=== PATIENT | female | born 1960 | race American Indian/Alaskan Native ===

== ENCOUNTER 2019-10-25 17:03 | Inpatient (IN) | payer MEDICARE ==
[2019-10-25] MEDS ORDERED: SODIUM CHLORIDE 0.9% 1000 ML IV SOLN IV ONE (17:21)
[2019-10-25] MEDS ORDERED: CEFEPIME/NS 2 GM/100 ML 2 GM/100 ML BAG IV ONE (17:26)
--- NOTE | 2019-10-25 17:48 | Emergency Department Report ---
ED General Adult HPI - General Stated complaint: DIFFICULTY BREATHING Time Seen by Provider: 10/25/19 17:19 - History of Present Illness Initial comments: The patient presents to the emergency department via EMS for a chief complaint of hypotension. Per the patient she states that yesterday she had couple episodes of diarrhea and today she woke up and felt very weak and was sweaty. She states upon standing up she felt like she was going to pass out. Upon EMS arrival to state the patient was conversive but no radial pulse could be obtained and the patient had O2 sats in the 70s. Patient states he began to have some difficulty in breathing and chest pain this morning. Patient does have a history of emphysema but does not wear oxygen at home. Upon arrival to the ED the patient's blood pressure was 89/58 after receiving approximately 500 cc of fluid. Per EMS the patient's axillary temp was 94.3 -: Sudden Location: chest Radiation: non-radiation Severity scale (0 -10): 2 Quality: aching Consistency: constant Improves with: none Worsens with: none Associated Symptoms: denies other symptoms Treatments Prior to Arrival: none - Related Data Allergies Allergy/AdvReac Type Severity Reaction Status Date / Time diclofenac [From Voltaren] Allergy Hives Verified 10/25/19 18:02 ED Review of Systems ROS: Stated complaint: DIFFICULTY BREATHING Other details as noted in HPI Constitutional: denies: chills, fever Eyes: denies: eye pain, eye discharge, vision change ENT: denies: ear pain, throat pain Respiratory: shortness of breath Cardiovascular: denies: chest pain, palpitations Endocrine: no symptoms reported Gastrointestinal: denies: abdominal pain, nausea, diarrhea Genitourinary: denies: urgency, dysuria, discharge Musculoskeletal: denies: back pain, joint swelling, arthralgia Skin: denies: rash, lesions Neurological: denies: headache, weakness, paresthesias Psychiatric: denies: anxiety, depression Hematological/Lymphatic: denies: easy bleeding, easy bruising ED Physical Exam - General General appearance: alert, in no apparent distress - Head Head exam: Present: atraumatic, normocephalic - Eye Eye exam: Present: normal appearance, PERRL, EOMI - ENT ENT exam: Present: mucous membranes dry - Neck Neck exam: Present: normal inspection - Respiratory Respiratory exam: Present: wheezes. Absent: respiratory distress - Cardiovascular Cardiovascular Exam: Present: normal rhythm, tachycardia. Absent: systolic murmur, diastolic murmur, rubs, gallop - GI/Abdominal GI/Abdominal exam: Present: soft, normal bowel sounds. Absent: distended, tenderness - Extremities Exam Extremities exam: Present: other (Bilateral nonpitting edema of LE's ) - Back Exam Back exam: Present: normal inspection - Neurological Exam Neurological exam: Present: alert, oriented X3, CN II-XII intact. Absent: motor sensory deficit - Psychiatric Psychiatric exam: Present: normal affect, normal mood - Skin Skin exam: Present: warm, dry, intact, normal color. Absent: rash ED Course Vital Signs 10/25/19 10/25/19 10/25/19 17:38 17:45 19:02 Temperature 98.5 F Pulse Rate 118 H Respiratory 24 20 Rate Blood Pressure 89/58 O2 Sat by Pulse 86 96 97 Oximetry 10/25/19 10/25/19 10/25/19 19:56 20:00 20:16 Temperature Pulse Rate 106 H 106 H 108 H Respiratory 15 19 22 Rate Blood Pressure 134/98 142/101 O2 Sat by Pulse 90 97 Oximetry 10/25/19 10/25/19 10/25/19 20:30 21:10 21:16 Temperature Pulse Rate 109 H 108 H Respiratory 27 H 50 H 20 Rate Blood Pressure O2 Sat by Pulse 64 L Oximetry 10/25/19 10/25/19 10/25/19 21:30 21:46 22:00 Temperature Pulse Rate 110 H Respiratory 23 25 H 27 H Rate Blood Pressure O2 Sat by Pulse Oximetry 10/25/19 10/25/19 10/25/19 22:16 22:30 22:46 Temperature Pulse Rate 107 H 106 H 105 H Respiratory 18 20 24 Rate Blood Pressure 109/57 112/71 O2 Sat by Pulse Oximetry 10/25/19 23:55 Temperature Pulse Rate 102 H Respiratory 13 Rate Blood Pressure 94/52 O2 Sat by Pulse Oximetry - Central Line Placement Right Femoral Consent Obtained: verbal consent Time Out Performed: Yes Patient Placed on Monitor/Pulse Ox: Yes Prep: mask, gown, gloves Central Line Prep: Chlorhexidine scrub, sterile drapes applied Local Anesthesia Used: Lidocaine 1% Amount of Anesthesia Used (mls): 15 Ultrasound Used for Placement: Yes Central Line Lumen Inserted: triple Bloods Obtained for Lab: Yes Central Line Position: good blood return, all ports aspirated, flus, sutured in place with 2-0 Dressing Applied: Tegaderm Patient Tolerated Procedure: well Complications: none ED Medical Decision Making - Lab Data Result diagrams: 10/25/19 21:50 10/25/19 20:09 Lab Results 10/25/19 10/25/19 10/25/19 Range/Units 17:40 17:40 17:40 WBC 20.4 H (4.5-11.0) K/mm3 RBC 4.63 (3.65-5.03) M/mm3 Hgb 14.0 (10.1-14.3) gm/dl Hct 42.2 (30.3-42.9) % MCV 91 (79-97) fl MCH 30 (28-32) pg MCHC 33 (30-34) % RDW 18.9 H (13.2-15.2) % Plt Count 145 (140-440) K/mm3 Add Manual Diff Complete Total Counted 100 Seg Neuts % (Manual) 73.0 H (40.0-70.0) % Band Neutrophils % 6.0 % Lymphocytes % (Manual) 19.0 (13.4-35.0) % Reactive Lymphs % (Man) 0 % Monocytes % (Manual) 2.0 (0.0-7.3) % Eosinophils % (Manual) 0 (0.0-4.3) % Basophils % (Manual) 0 (0.0-1.8) % Metamyelocytes % 0 % Myelocytes % 0 % Promyelocytes % 0 % Blast Cells % 0 % Nucleated RBC % Not Reportable Seg Neutrophils # Man 14.9 H (1.8-7.7) K/mm3 Band Neutrophils # 1.2 K/mm3 Lymphocytes # (Manual) 3.9 (1.2-5.4) K/mm3 Abs React Lymphs (Man) 0.0 K/mm3 Monocytes # (Manual) 0.4 (0.0-0.8) K/mm3 Eosinophils # (Manual) 0.0 (0.0-0.4) K/mm3 Basophils # (Manual) 0.0 (0.0-0.1) K/mm3 Metamyelocytes # 0.0 K/mm3 Myelocytes # 0.0 K/mm3 Promyelocytes # 0.0 K/mm3 Blast Cells # 0.0 K/mm3 WBC Morphology Not Reportable Hypersegmented Neuts Not Reportable Hyposegmented Neuts Not Reportable Hypogranular Neuts Not Reportable Smudge Cells Not Reportable Toxic Granulation Not Reportable Toxic Vacuolation Not Reportable Dohle Bodies Not Reportable Pelger-Huet Anomaly Not Reportable Eagle Rods Not Reportable Platelet Estimate Consistent w auto Clumped Platelets Not Reportable Plt Clumps, EDTA Not Reportable Large Platelets Not Reportable Giant Platelets Not Reportable Platelet Satelliting Not Reportable Plt Morphology Comment Not Reportable RBC Morphology Not Reportable Dimorphic RBCs Not Reportable Polychromasia Not Reportable Hypochromasia Not Reportable Poikilocytosis Not Reportable Anisocytosis Not Reportable Microcytosis Not Reportable Macrocytosis Not Reportable Spherocytes Not Reportable Pappenheimer Bodies Not Reportable Sickle Cells Not Reportable Target Cells Not Reportable Tear Drop Cells Not Reportable Ovalocytes Rare Helmet Cells Not Reportable Lawson-La Feria Bodies Not Reportable [place] Rings Not Reportable [place] Cells Not Reportable Bite Cells Not Reportable Crenated Cell Not Reportable Elliptocytes Not Reportable Acanthocytes (Spur) Not Reportable Rouleaux Not Reportable Hemoglobin C Crystals Not Reportable Schistocytes Not Reportable Malaria parasites Not Reportable David Bodies Not Reportable Hem Pathologist Commnt No PT (12.2-14.9) Sec. INR (0.87-1.13) APTT 24.4 (24.2-36.6) Sec. D-Dimer > 80789 H (0-234) ng/mlDDU ABG pH (7.350-7.450) pH Units ABG pCO2 mm Hg ABG pO2 (80.0-90.0) mm Hg ABG HCO3 (20.0-26.0) mmol/L ABG O2 Saturation (95.0-99.0) % ABG O2 Content (0.0-44) ABG Base Excess (-2.0-3.0) mmol/L ABG Hemoglobin (12.0-16.0) gm/dl ABG Carboxyhemoglobin (0.0-5.0) % ABG Methemoglobin (0.0-1.5) % Oxyhemoglobin (95.0-99.0) % FiO2 % Sodium 138 (137-145) mmol/L Potassium 2.2 L* (3.6-5.0) mmol/L Chloride 91.3 L (98-107) mmol/L Carbon Dioxide 23 (22-30) mmol/L Anion Gap 26 mmol/L BUN 22 H (7-17) mg/dL Creatinine 1.3 H (0.6-1.2) mg/dL Estimated GFR 42 ml/min BUN/Creatinine Ratio 17 % Glucose 202 H (65-100) mg/dL Lactic Acid (0.7-2.0) mmol/L Calcium 9.2 (8.4-10.2) mg/dL Magnesium (1.7-2.3) mg/dL Ferritin (10.0-200.0) ng/mL Total Bilirubin 0.60 (0.1-1.2) mg/dL AST 33 (5-40) units/L ALT 31 (7-56) units/L Alkaline Phosphatase 96 (35-129) units/L Lactate Dehydrogenase (91-180) units/L Troponin T 0.193 H* (0.00-0.029) ng/mL C-Reactive Protein (0.00-1.30) mg/dL NT-Pro-B Natriuret Pep (0-900) pg/mL Total Protein 6.3 (6.3-8.2) g/dL Albumin 3.9 (3.9-5) g/dL Albumin/Globulin Ratio 1.6 % Triglycerides 106 (2-149) mg/dL Cholesterol 185 (50-199) mg/dL LDL Cholesterol Direct 107 (50-130) mg/dL HDL Cholesterol 85 H (40-59) mg/dL Cholesterol/HDL Ratio 2.17 % 10/25/19 10/25/19 10/25/19 Range/Units 17:40 17:40 17:40 WBC (4.5-11.0) K/mm3 RBC (3.65-5.03) M/mm3 Hgb (10.1-14.3) gm/dl Hct (30.3-42.9) % MCV (79-97) fl MCH (28-32) pg MCHC (30-34) % RDW (13.2-15.2) % Plt Count (140-440) K/mm3 Add Manual Diff Total Counted Seg Neuts % (Manual) (40.0-70.0) % Band Neutrophils % % Lymphocytes % (Manual) (13.4-35.0) % Reactive Lymphs % (Man) % Monocytes % (Manual) (0.0-7.3) % Eosinophils % (Manual) (0.0-4.3) % Basophils % (Manual) (0.0-1.8) % Metamyelocytes % % Myelocytes % % Promyelocytes % % Blast Cells % % Nucleated RBC % Seg Neutrophils # Man (1.8-7.7) K/mm3 Band Neutrophils # K/mm3 Lymphocytes # (Manual) (1.2-5.4) K/mm3 Abs React Lymphs (Man) K/mm3 Monocytes # (Manual) (0.0-0.8) K/mm3 Eosinophils # (Manual) (0.0-0.4) K/mm3 Basophils # (Manual) (0.0-0.1) K/mm3 Metamyelocytes # K/mm3 Myelocytes # K/mm3 Promyelocytes # K/mm3 Blast Cells # K/mm3 WBC Morphology Hypersegmented Neuts Hyposegmented Neuts Hypogranular Neuts Smudge Cells Toxic Granulation Toxic Vacuolation Dohle Bodies Pelger-Huet Anomaly [place] Rods Platelet Estimate Clumped Platelets Plt Clumps, EDTA Large Platelets Giant Platelets Platelet Satelliting Plt Morphology Comment RBC Morphology Dimorphic RBCs Polychromasia Hypochromasia Poikilocytosis Anisocytosis Microcytosis Macrocytosis Spherocytes Pappenheimer Bodies Sickle Cells Target Cells Tear Drop Cells Ovalocytes Helmet Cells Lawson-La Feria Bodies [place] Rings [place] Cells Bite Cells Crenated Cell Elliptocytes Acanthocytes (Spur) Rouleaux Hemoglobin C Crystals Schistocytes Malaria parasites David Bodies Hem Pathologist Commnt PT (12.2-14.9) Sec. INR (0.87-1.13) APTT (24.2-36.6) Sec. D-Dimer > 11199 H (0-234) ng/mlDDU ABG pH (7.350-7.450) pH Units ABG pCO2 mm Hg ABG pO2 (80.0-90.0) mm Hg ABG HCO3 (20.0-26.0) mmol/L ABG O2 Saturation (95.0-99.0) % ABG O2 Content (0.0-44) ABG Base Excess (-2.0-3.0) mmol/L ABG Hemoglobin (12.0-16.0) gm/dl ABG Carboxyhemoglobin (0.0-5.0) % ABG Methemoglobin (0.0-1.5) % Oxyhemoglobin (95.0-99.0) % FiO2 % Sodium (137-145) mmol/L Potassium (3.6-5.0) mmol/L Chloride (98-107) mmol/L Carbon Dioxide (22-30) mmol/L Anion Gap mmol/L BUN (7-17) mg/dL Creatinine (0.6-1.2) mg/dL Estimated GFR ml/min BUN/Creatinine Ratio % Glucose (65-100) mg/dL Lactic Acid 8.00 H* (0.7-2.0) mmol/L Calcium (8.4-10.2) mg/dL Magnesium (1.7-2.3) mg/dL Ferritin (10.0-200.0) ng/mL Total Bilirubin (0.1-1.2) mg/dL AST (5-40) units/L ALT (7-56) units/L Alkaline Phosphatase (35-129) units/L Lactate Dehydrogenase (91-180) units/L Troponin T (0.00-0.029) ng/mL C-Reactive Protein (0.00-1.30) mg/dL NT-Pro-B Natriuret Pep 179.5 (0-900) pg/mL Total Protein (6.3-8.2) g/dL Albumin (3.9-5) g/dL Albumin/Globulin Ratio % Triglycerides (2-149) mg/dL Cholesterol (50-199) mg/dL LDL Cholesterol Direct (50-130) mg/dL HDL Cholesterol (40-59) mg/dL Cholesterol/HDL Ratio % 10/25/19 10/25/19 10/25/19 Range/Units 17:40 17:40 17:45 WBC (4.5-11.0) K/mm3 RBC (3.65-5.03) M/mm3 Hgb (10.1-14.3) gm/dl Hct (30.3-42.9) % MCV (79-97) fl MCH (28-32) pg MCHC (30-34) % RDW (13.2-15.2) % Plt Count (140-440) K/mm3 Add Manual Diff Total Counted Seg Neuts % (Manual) (40.0-70.0) % Band Neutrophils % % Lymphocytes % (Manual) (13.4-35.0) % Reactive Lymphs % (Man) % Monocytes % (Manual) (0.0-7.3) % Eosinophils % (Manual) (0.0-4.3) % Basophils % (Manual) (0.0-1.8) % Metamyelocytes % % Myelocytes % % Promyelocytes % % Blast Cells % % Nucleated RBC % Seg Neutrophils # Man (1.8-7.7) K/mm3 Band Neutrophils # K/mm3 Lymphocytes # (Manual) (1.2-5.4) K/mm3 Abs React Lymphs (Man) K/mm3 Monocytes # (Manual) (0.0-0.8) K/mm3 Eosinophils # (Manual) (0.0-0.4) K/mm3 Basophils # (Manual) (0.0-0.1) K/mm3 Metamyelocytes # K/mm3 Myelocytes # K/mm3 Promyelocytes # K/mm3 Blast Cells # K/mm3 WBC Morphology Hypersegmented Neuts Hyposegmented Neuts Hypogranular Neuts Smudge Cells Toxic Granulation Toxic Vacuolation Dohle Bodies Pelger-Huet Anomaly [place] Rods Platelet Estimate Clumped Platelets Plt Clumps, EDTA Large Platelets Giant Platelets Platelet Satelliting Plt Morphology Comment RBC Morphology Dimorphic RBCs Polychromasia Hypochromasia Poikilocytosis Anisocytosis Microcytosis Macrocytosis Spherocytes Pappenheimer Bodies Sickle Cells Target Cells Tear Drop Cells Ovalocytes Helmet Cells Lawson-La Feria Bodies [place] Rings [place] Cells Bite Cells Crenated Cell Elliptocytes Acanthocytes (Spur) Rouleaux Hemoglobin C Crystals Schistocytes Malaria parasites David Bodies Hem Pathologist Commnt PT (12.2-14.9) Sec. INR (0.87-1.13) APTT (24.2-36.6) Sec. D-Dimer (0-234) ng/mlDDU ABG pH 7.397 (7.350-7.450) pH Units ABG pCO2 36.6 mm Hg ABG pO2 71.5 L (80.0-90.0) mm Hg ABG HCO3 22.0 (20.0-26.0) mmol/L ABG O2 Saturation 94.6 L (95.0-99.0) % ABG O2 Content 17.6 (0.0-44) ABG Base Excess -2.3 L (-2.0-3.0) mmol/L ABG Hemoglobin 13.7 (12.0-16.0) gm/dl ABG Carboxyhemoglobin 2.9 (0.0-5.0) % ABG Methemoglobin 0.3 (0.0-1.5) % Oxyhemoglobin 91.6 L (95.0-99.0) % FiO2 21 % Sodium (137-145) mmol/L Potassium (3.6-5.0) mmol/L Chloride (98-107) mmol/L Carbon Dioxide (22-30) mmol/L Anion Gap mmol/L BUN (7-17) mg/dL Creatinine (0.6-1.2) mg/dL Estimated GFR ml/min BUN/Creatinine Ratio % Glucose 205 H (65-100) mg/dL Lactic Acid (0.7-2.0) mmol/L Calcium (8.4-10.2) mg/dL Magnesium (1.7-2.3) mg/dL Ferritin 121.6 (10.0-200.0) ng/mL Total Bilirubin (0.1-1.2) mg/dL AST (5-40) units/L ALT (7-56) units/L Alkaline Phosphatase (35-129) units/L Lactate Dehydrogenase 322 H (91-180) units/L Troponin T (0.00-0.029) ng/mL C-Reactive Protein 2.50 H (0.00-1.30) mg/dL NT-Pro-B Natriuret Pep (0-900) pg/mL Total Protein (6.3-8.2) g/dL Albumin (3.9-5) g/dL Albumin/Globulin Ratio % Triglycerides (2-149) mg/dL Cholesterol (50-199) mg/dL LDL Cholesterol Direct (50-130) mg/dL HDL Cholesterol (40-59) mg/dL Cholesterol/HDL Ratio % 10/25/19 10/25/19 10/25/19 Range/Units 20:09 20:09 20:09 WBC (4.5-11.0) K/mm3 RBC (3.65-5.03) M/mm3 Hgb (10.1-14.3) gm/dl Hct (30.3-42.9) % MCV (79-97) fl MCH (28-32) pg MCHC (30-34) % RDW (13.2-15.2) % Plt Count (140-440) K/mm3 Add Manual Diff Total Counted Seg Neuts % (Manual) (40.0-70.0) % Band Neutrophils % % Lymphocytes % (Manual) (13.4-35.0) % Reactive Lymphs % (Man) % Monocytes % (Manual) (0.0-7.3) % Eosinophils % (Manual) (0.0-4.3) % Basophils % (Manual) (0.0-1.8) % Metamyelocytes % % Myelocytes % % Promyelocytes % % Blast Cells % % Nucleated RBC % Seg Neutrophils # Man (1.8-7.7) K/mm3 Band Neutrophils # K/mm3 Lymphocytes # (Manual) (1.2-5.4) K/mm3 Abs React Lymphs (Man) K/mm3 Monocytes # (Manual) (0.0-0.8) K/mm3 Eosinophils # (Manual) (0.0-0.4) K/mm3 Basophils # (Manual) (0.0-0.1) K/mm3 Metamyelocytes # K/mm3 Myelocytes # K/mm3 Promyelocytes # K/mm3 Blast Cells # K/mm3 WBC Morphology Hypersegmented Neuts Hyposegmented Neuts Hypogranular Neuts Smudge Cells Toxic Granulation Toxic Vacuolation Dohle Bodies Pelger-Huet Anomaly [place] Rods Platelet Estimate Clumped Platelets Plt Clumps, EDTA Large Platelets Giant Platelets Platelet Satelliting Plt Morphology Comment RBC Morphology Dimorphic RBCs Polychromasia Hypochromasia Poikilocytosis Anisocytosis Microcytosis Macrocytosis Spherocytes Pappenheimer Bodies Sickle Cells Target Cells Tear Drop Cells Ovalocytes Helmet Cells Lawson-La Feria Bodies [place] Rings [place] Cells Bite Cells Crenated Cell Elliptocytes Acanthocytes (Spur) Rouleaux Hemoglobin C Crystals Schistocytes Malaria parasites David Bodies Hem Pathologist Commnt PT (12.2-14.9) Sec. INR (0.87-1.13) APTT (24.2-36.6) Sec. D-Dimer (0-234) ng/mlDDU ABG pH (7.350-7.450) pH Units ABG pCO2 mm Hg ABG pO2 (80.0-90.0) mm Hg ABG HCO3 (20.0-26.0) mmol/L ABG O2 Saturation (95.0-99.0) % ABG O2 Content (0.0-44) ABG Base Excess (-2.0-3.0) mmol/L ABG Hemoglobin (12.0-16.0) gm/dl ABG Carboxyhemoglobin (0.0-5.0) % ABG Methemoglobin (0.0-1.5) % Oxyhemoglobin (95.0-99.0) % FiO2 % Sodium (137-145) mmol/L Potassium 3.0 L D (3.6-5.0) mmol/L Chloride (98-107) mmol/L Carbon Dioxide (22-30) mmol/L Anion Gap mmol/L BUN (7-17) mg/dL Creatinine (0.6-1.2) mg/dL Estimated GFR ml/min BUN/Creatinine Ratio % Glucose (65-100) mg/dL Lactic Acid 3.40 H* (0.7-2.0) mmol/L Calcium (8.4-10.2) mg/dL Magnesium 2.30 (1.7-2.3) mg/dL Ferritin (10.0-200.0) ng/mL Total Bilirubin (0.1-1.2) mg/dL AST (5-40) units/L ALT (7-56) units/L Alkaline Phosphatase (35-129) units/L Lactate Dehydrogenase (91-180) units/L Troponin T (0.00-0.029) ng/mL C-Reactive Protein (0.00-1.30) mg/dL NT-Pro-B Natriuret Pep (0-900) pg/mL Total Protein (6.3-8.2) g/dL Albumin (3.9-5) g/dL Albumin/Globulin Ratio % Triglycerides (2-149) mg/dL Cholesterol (50-199) mg/dL LDL Cholesterol Direct (50-130) mg/dL HDL Cholesterol (40-59) mg/dL Cholesterol/HDL Ratio % 10/25/19 10/25/19 Range/Units 21:50 21:50 WBC (4.5-11.0) K/mm3 RBC (3.65-5.03) M/mm3 Hgb 13.2 (10.1-14.3) gm/dl Hct 40.4 (30.3-42.9) % MCV (79-97) fl MCH (28-32) pg MCHC (30-34) % RDW (13.2-15.2) % Plt Count 127 L (140-440) K/mm3 Add Manual Diff Total Counted Seg Neuts % (Manual) (40.0-70.0) % Band Neutrophils % % Lymphocytes % (Manual) (13.4-35.0) % Reactive Lymphs % (Man) % Monocytes % (Manual) (0.0-7.3) % Eosinophils % (Manual) (0.0-4.3) % Basophils % (Manual) (0.0-1.8) % Metamyelocytes % % Myelocytes % % Promyelocytes % % Blast Cells % % Nucleated RBC % Seg Neutrophils # Man (1.8-7.7) K/mm3 Band Neutrophils # K/mm3 Lymphocytes # (Manual) (1.2-5.4) K/mm3 Abs React Lymphs (Man) K/mm3 Monocytes # (Manual) (0.0-0.8) K/mm3 Eosinophils # (Manual) (0.0-0.4) K/mm3 Basophils # (Manual) (0.0-0.1) K/mm3 Metamyelocytes # K/mm3 Myelocytes # K/mm3 Promyelocytes # K/mm3 Blast Cells # K/mm3 WBC Morphology Hypersegmented Neuts Hyposegmented Neuts Hypogranular Neuts Smudge Cells Toxic Granulation Toxic Vacuolation Dohle Bodies Pelger-Huet Anomaly [place] Rods Platelet Estimate Clumped Platelets Plt Clumps, EDTA Large Platelets Giant Platelets Platelet Satelliting Plt Morphology Comment RBC Morphology Dimorphic RBCs Polychromasia Hypochromasia Poikilocytosis Anisocytosis Microcytosis Macrocytosis Spherocytes Pappenheimer Bodies Sickle Cells Target Cells Tear Drop Cells Ovalocytes Helmet Cells Lawson-La Feria Bodies [place] Rings [place] Cells Bite Cells Crenated Cell Elliptocytes Acanthocytes (Spur) Rouleaux Hemoglobin C Crystals Schistocytes Malaria parasites David Bodies Hem Pathologist Commnt PT 14.5 (12.2-14.9) Sec. INR 1.12 (0.87-1.13) APTT 26.9 (24.2-36.6) Sec. D-Dimer (0-234) ng/mlDDU ABG pH (7.350-7.450) pH Units ABG pCO2 mm Hg ABG pO2 (80.0-90.0) mm Hg ABG HCO3 (20.0-26.0) mmol/L ABG O2 Saturation (95.0-99.0) % ABG O2 Content (0.0-44) ABG Base Excess (-2.0-3.0) mmol/L ABG Hemoglobin (12.0-16.0) gm/dl ABG Carboxyhemoglobin (0.0-5.0) % ABG Methemoglobin (0.0-1.5) % Oxyhemoglobin (95.0-99.0) % FiO2 % Sodium (137-145) mmol/L Potassium (3.6-5.0) mmol/L Chloride (98-107) mmol/L Carbon Dioxide (22-30) mmol/L Anion Gap mmol/L BUN (7-17) mg/dL Creatinine (0.6-1.2) mg/dL Estimated GFR ml/min BUN/Creatinine Ratio % Glucose (65-100) mg/dL Lactic Acid (0.7-2.0) mmol/L Calcium (8.4-10.2) mg/dL Magnesium (1.7-2.3) mg/dL Ferritin (10.0-200.0) ng/mL Total Bilirubin (0.1-1.2) mg/dL AST (5-40) units/L ALT (7-56) units/L Alkaline Phosphatase (35-129) units/L Lactate Dehydrogenase (91-180) units/L Troponin T (0.00-0.029) ng/mL C-Reactive Protein (0.00-1.30) mg/dL NT-Pro-B Natriuret Pep (0-900) pg/mL Total Protein (6.3-8.2) g/dL Albumin (3.9-5) g/dL Albumin/Globulin Ratio % Triglycerides (2-149) mg/dL Cholesterol (50-199) mg/dL LDL Cholesterol Direct (50-130) mg/dL HDL Cholesterol (40-59) mg/dL Cholesterol/HDL Ratio % - EKG Data -: EKG Interpreted by Me EKG shows normal: sinus rhythm Rate: tachycardia - Radiology Data Radiology results: report reviewed - Medical Decision Making Sepsis protocol initiated and IV fluids along with IV antibiotics were given CT of the chest revealed bilateral pulmonary emboli and the patient was started on IV heparin Repeat examination of the patient 11 PM the patient is hypotensive thus a central line will be placed and dopamine will be started Critical Care Time: Yes Critical care time in (mins) excluding proc time.: 60 Critical care attestation.: If time is entered above; I have spent that time in minutes in the direct care of this critically ill patient, excluding procedure time. ED Disposition Clinical Impression: Bilateral pulmonary embolism, Sepsis, Acute renal injury Disposition: 09 OP ADMIT IP TO THIS HOSP Is pt being admited?: Yes Does the pt Need Aspirin: No Condition: Critical
[2019-10-25 17:52] LABS: ABG Base Excess -2.3 mmol/L (-2.0-3.0); ABG Methemoglobin 0.3 % (0.0-1.5); ABG Oxygen Saturation 94.6 % (95.0-99.0); ABG PCO2 36.6 mm Hg; ABG PH 7.397 pH Units (7.350-7.450); ABG PO2 71.5 mm Hg (80.0-90.0)
[2019-10-25 18:02] LABS: Hematocrit 42.2 % (30.3-42.9); Mean Corpuscular HGB Conc 33 % (30-34); Mean Corpuscular Volume 91 fl (79-97); Platelet Count 145 K/mm3 (140-440); Red Blood Count 4.63 M/mm3 (3.65-5.03); Red Cell Distribution Width 18.9 % (13.2-15.2)
[2019-10-25 18:14] LABS: Partial Thromboplastin Time 24.4 Sec. (24.2-36.6)
--- NOTE | 2019-10-25 18:26 | XRay Report ---
CHEST 1 VIEW INDICATION: hypotension. COMPARISON: None. FINDINGS: Support devices: None. Heart: Borderline heart size. Lungs/Pleura: No acute air space or interstitial disease. Additional findings: None. IMPRESSION: Borderline heart size. Signer Name: Corey Tucker MD Signed: 10/25/2019 6:22 PM Workstation Name: [id number]
[2019-10-25 18:28] LABS: Albumin 3.9 g/dL (3.9-5); Calcium 9.2 mg/dL (8.4-10.2)
[2019-10-25 18:40] LABS: C-Reactive Protein 2.5 mg/dL (0.00-1.30)
[2019-10-25 18:48] LABS: Chol/HDL Ratio 2.17 %
[2019-10-25 19:14] LABS: Band Neutrophils # (Manual) 1.2 K/mm3; Basophils % (Manual) 0 % (0.0-1.8); Eosinophils % (Manual) 0 % (0.0-4.3); Total Cells Counted 100
[2019-10-25 19:16] LABS: Ovalocytes Rare; Platelet Estimate Consistent w Auto
--- NOTE | 2019-10-25 21:37 | Cat Scan Report ---
CTA CHEST WITH CONTRAST INDICATION / CLINICAL INFORMATION: sob/tachycardia. TECHNIQUE: Axial CT images were obtained through the chest after injection of 100 cc Omni 350 IV contrast. 3 gertrudis ne MIP and/or 3D reconstructions were produced. All CT scans at this location are performed using CT dose reduction for ALARA by means of automated exposure control. COMPARISON: Chest radiograph 10/25/2019 FINDINGS: PULMONARY ARTERIES: Bilateral filling defects at the distal left and right main pulmonary arteries ex tending throughout the distal arteries. THORACIC AORTA: No significant abnormality. HEART: Flattening of the interventricular septum. MEDIASTINUM / NORMA: No significant abnormality. PLEURA: No pleural effusion. No pneumothorax. LUNGS: No pulmonary infarct. No focal consolidation, mass, or suspicious nodule. UPPER ABDOMEN: Reflux into the hepatic veins suggesting elevated right heart pressures SKELETAL STRUCTURES: No significant osseous abnormality. ADDITIONAL FINDINGS: None. IMPRESSION: 1. Large filling defects at the distal right and left main pulmonary arteries extending into the dist al branches. Findings concerning for right heart strain including flattening of the interventricular septum and reflux of contrast into the hepatic veins. No pulmonary infarct. 2. Additional findings as above. CRITICAL RESULT: Time of Discovery (CRIME INVESTIGATOR SPECIAL AGENT/CDT): 2024 Time of Communication (CRIME INVESTIGATOR SPECIAL AGENT/CDT): 2029 Licensed Practitioner Receiving Report: Kendrick Espino RN Read-Back Performed: Yes. Signer Name: Loco Kenny MD Signed: 10/25/2019 9:32 PM Workstation Name: [id number]
[2019-10-25] MEDS ORDERED: HEPARIN 10,000 UNITS/10 ML VIAL IV ONE (21:38)
[2019-10-25 21:59] LABS: Hematocrit 40.4 % (30.3-42.9); Hemoglobin 13.2 gm/dl (10.1-14.3)
[2019-10-25 22:13] LABS: INR 1.12 (0.87-1.13); Partial Thromboplastin Time 26.9 Sec. (24.2-36.6)
[2019-10-25] MEDS ORDERED: HYDROcodone/ACETAMINOPHEN 10-325MG TAB PO ONE (23:03)
[2019-10-25] MEDS ORDERED: LIDOCAINE (1%) 10 MG/1 ML VIAL 20 ML MDV INFILTRATI ONE (23:10)
[2019-10-25] MEDS ORDERED: DOPamine/D5W 800 MG/250 ML 800 MG/250 ML BAG IV ONE (23:11)
[2019-10-25] MEDS: HEPARIN/ 0.45% NACL DRIP 25,000 UNIT/500 ML BAG IV SCH (23:11)
[2019-10-25] MEDS ORDERED: MAGNESIUM HYDROXIDE (MOM) ORAL LIQD UDC PO PRN (23:26)
[2019-10-25] MEDS ORDERED: ACETAMINOPHEN 325 MG TAB PO PRN (23:26)
[2019-10-25] MEDS ORDERED: ONDANSETRON 4 MG/2 ML INJ IV PRN (23:26)
--- NOTE | 2019-10-25 23:36 | History and Physical Report ---
History of Present Illness Date of examination: 10/25/19 Date of admission: 10/25/2019 Chief complaint: Weakness Diarrhea Light-headedness History of present illness: Patient is a 59-year-old female with known history of emphysema presented to the emergency room today complaining of diarrhea and generalized weakness. He states that she had episodes of diarrhea yesterday and started feeling weak today and diaphoretic. She also indicates that she felt lightheaded when she stood up she thought she was going to pass out. Upon arrival of EMS patient was said to have thready pulse with O2 saturation in the 70s. She thereafter started having difficulty breathing and some chest discomfort. Blood pressure in the emergency room was 89/58 after receiving about 500 cc of IV fluid. Temperature was about 94.3 F axillary according to EMS. Work-up in the emergency room today reveals leukocytosis, elevated lactic acid, hypokalemia of about [address] angiogram reveals bilateral pulmonary embolism with right heart strain. Patient has been started on heparin drip and empiric IV antibiotics for sepsis. Patient also to be ruled out for COVID-19. Past History Past Medical History: COPD Past Surgical History: No surgical history Social history: no significant social history Family history: no significant family history Medications and Allergies Allergies Allergy/AdvReac Type Severity Reaction Status Date / Time diclofenac [From Voltaren] Allergy Hives Verified 10/25/19 18:02 Home Medications Medication Instructions Recorded Confirmed Last Taken Type Amitriptyline [Elavil] 25 mg PO QHS 10/26/19 10/26/19 Unknown History Cyclobenzaprine HCl [Flexeril 5 MG 5 mg PO TID 10/26/19 10/26/19 Unknown History TAB] Furosemide [Lasix TAB] 40 mg PO QDAY 10/26/19 10/26/19 Unknown History Gabapentin 300 mg PO TID 10/26/19 10/26/19 Unknown History Ibuprofen [Motrin] 800 mg PO Q8HR PRN 10/26/19 10/26/19 Unknown History predniSONE [Deltasone] 20 mg PO QDAY 10/26/19 10/26/19 Unknown History Active Meds: Active Medications Acetaminophen (Tylenol) 650 mg PO Q6H PRN PRN Reason: Pain, Mild (1-3) Hydromorphone HCl (Dilaudid) 0.25 mg IV Q4H PRN PRN Reason: Pain, Moderate (4-6) Heparin Sodium/Sodium Chloride (Heparin/ 0.45% Nacl-25,000 Unit/500 Ml) 25,000 unit in 500 mls @ 29 mls/hr IV TITR KATEY; Protocol Last Admin: 10/25/19 23:11 Dose: 1,450 units/hr, 29 mls/hr Documented by: Dopamine HCl/Dextrose (Intropin Drip 800 Mg/D5w 250 Ml) 800 mg in 250 mls @ 3.742 mls/hr IV TITR ONE; Protocol Stop: 10/28/19 17:59 Sodium Chloride (Nacl 0.9% 1000 Ml) 1,000 mls @ 125 mls/hr IV DIRECT KATEY Magnesium Hydroxide (Milk Of Magnesia) 30 ml PO Q4H PRN PRN Reason: Constipation Ondansetron HCl (Zofran) 4 mg IV Q8H PRN PRN Reason: Nausea And Vomiting Sodium Chloride (Sodium Chloride Flush Syringe 10 Ml) 10 ml IV BID KATEY Sodium Chloride (Sodium Chloride Flush Syringe 10 Ml) 10 ml IV PRN PRN PRN Reason: LINE FLUSH Review of Systems Constitutional: weakness, no fever, no chills Ears, nose, mouth and throat: no nasal congestion, no sore throat Cardiovascular: chest pain, no palpitations Respiratory: shortness of breath, no cough Gastrointestinal: diarrhea, no abdominal pain, no nausea, no vomiting Genitourinary Female: no pelvic pain, no flank pain, no dysuria, no hematuria Musculoskeletal: no neck pain, no low back pain Integumentary: no rash, no pruritis Neurological: no headaches, no confusion Psychiatric: no anxiety, no depression Exam - Constitutional Vitals: Temp Pulse Resp BP Pulse Ox 98.5 F 118 H 24 89/58 96 10/25/19 17:38 10/25/19 17:38 10/25/19 17:38 10/25/19 17:38 10/25/19 17:45 General appearance: Present: no acute distress, well-nourished, obese - EENT Eyes: Present: PERRL, EOM intact ENT: hearing intact, clear oral mucosa, dentition normal - Neck Neck: Present: supple, normal ROM - Respiratory Respiratory effort: normal Respiratory: bilateral: CTA - Cardiovascular Rhythm: other (Mildly tachycardic) Heart Sounds: Present: S1 & S2. Absent: gallop, systolic murmur, diastolic murmur, rub - Extremities Extremities: no ischemia, pulses intact, pulses symmetrical, No edema, Full ROM Peripheral Pulses: within normal limits - Abdominal General gastrointestinal: Present: soft, non-tender, non-distended, normal bowel sounds. Absent: mass - Integumentary Integumentary: Present: clear, warm, dry. Absent: rash - Musculoskeletal Musculoskeletal: strength equal bilaterally - Psychiatric Psychiatric: appropriate mood/affect, intact judgment & insight, memory intact, cooperative - Neurologic Neurologic: CNII-XII intact, no focal deficits, moves all extremities HEART Score - HEART Score Troponin: Troponin T 0.193 ng/mL (0.00-0.029) H* 10/25/19 17:40 Results - Labs CBC & Chem 7: 10/25/19 21:50 10/25/19 20:09 Labs: Abnormal lab results 10/25/19 10/25/19 10/25/19 Range/Units 17:40 17:40 17:40 WBC 20.4 H (4.5-11.0) K/mm3 RDW 18.9 H (13.2-15.2) % Plt Count (140-440) K/mm3 Seg Neuts % (Manual) 73.0 H (40.0-70.0) % Seg Neutrophils # Man 14.9 H (1.8-7.7) K/mm3 D-Dimer > 84928 H (0-234) ng/mlDDU ABG pO2 (80.0-90.0) mm Hg ABG O2 Saturation (95.0-99.0) % ABG Base Excess (-2.0-3.0) mmol/L Oxyhemoglobin (95.0-99.0) % Potassium 2.2 L* (3.6-5.0) mmol/L Chloride 91.3 L (98-107) mmol/L BUN 22 H (7-17) mg/dL Creatinine 1.3 H (0.6-1.2) mg/dL Glucose 202 H (65-100) mg/dL Lactic Acid (0.7-2.0) mmol/L Lactate Dehydrogenase (91-180) units/L Troponin T 0.193 H* (0.00-0.029) ng/mL C-Reactive Protein (0.00-1.30) mg/dL HDL Cholesterol 85 H (40-59) mg/dL 10/25/19 10/25/19 10/25/19 Range/Units 17:40 17:40 17:40 WBC (4.5-11.0) K/mm3 RDW (13.2-15.2) % Plt Count (140-440) K/mm3 Seg Neuts % (Manual) (40.0-70.0) % Seg Neutrophils # Man (1.8-7.7) K/mm3 D-Dimer > 20342 H (0-234) ng/mlDDU ABG pO2 (80.0-90.0) mm Hg ABG O2 Saturation (95.0-99.0) % ABG Base Excess (-2.0-3.0) mmol/L Oxyhemoglobin (95.0-99.0) % Potassium (3.6-5.0) mmol/L Chloride (98-107) mmol/L BUN (7-17) mg/dL Creatinine (0.6-1.2) mg/dL Glucose 205 H (65-100) mg/dL Lactic Acid 8.00 H* (0.7-2.0) mmol/L Lactate Dehydrogenase 322 H (91-180) units/L Troponin T (0.00-0.029) ng/mL C-Reactive Protein 2.50 H (0.00-1.30) mg/dL HDL Cholesterol (40-59) mg/dL 10/25/19 10/25/19 10/25/19 Range/Units 17:45 20:09 20:09 WBC (4.5-11.0) K/mm3 RDW (13.2-15.2) % Plt Count (140-440) K/mm3 Seg Neuts % (Manual) (40.0-70.0) % Seg Neutrophils # Man (1.8-7.7) K/mm3 D-Dimer (0-234) ng/mlDDU ABG pO2 71.5 L (80.0-90.0) mm Hg ABG O2 Saturation 94.6 L (95.0-99.0) % ABG Base Excess -2.3 L (-2.0-3.0) mmol/L Oxyhemoglobin 91.6 L (95.0-99.0) % Potassium 3.0 L D (3.6-5.0) mmol/L Chloride (98-107) mmol/L BUN (7-17) mg/dL Creatinine (0.6-1.2) mg/dL Glucose (65-100) mg/dL Lactic Acid 3.40 H* (0.7-2.0) mmol/L Lactate Dehydrogenase (91-180) units/L Troponin T (0.00-0.029) ng/mL C-Reactive Protein (0.00-1.30) mg/dL HDL Cholesterol (40-59) mg/dL 10/25/19 Range/Units 21:50 WBC (4.5-11.0) K/mm3 RDW (13.2-15.2) % Plt Count 127 L (140-440) K/mm3 Seg Neuts % (Manual) (40.0-70.0) % Seg Neutrophils # Man (1.8-7.7) K/mm3 D-Dimer (0-234) ng/mlDDU ABG pO2 (80.0-90.0) mm Hg ABG O2 Saturation (95.0-99.0) % ABG Base Excess (-2.0-3.0) mmol/L Oxyhemoglobin (95.0-99.0) % Potassium (3.6-5.0) mmol/L Chloride (98-107) mmol/L BUN (7-17) mg/dL Creatinine (0.6-1.2) mg/dL Glucose (65-100) mg/dL Lactic Acid (0.7-2.0) mmol/L Lactate Dehydrogenase (91-180) units/L Troponin T (0.00-0.029) ng/mL C-Reactive Protein (0.00-1.30) mg/dL HDL Cholesterol (40-59) mg/dL Assessment and Plan - Patient Problems (1) Bilateral pulmonary embolism Current Visit: Yes Status: Acute Plan to address problem: Patient started on heparin drip. Will monitor PT PTT according to protocol. (2) Sepsis Current Visit: Yes Status: Acute Plan to address problem: Patient started on empiric IV antibiotics. We await urine and blood cultures. (3) Acute renal injury Current Visit: Yes Status: Acute Plan to address problem: Patient placed on IV fluid normal saline. Will monitor BUN and creatinine. (4) Full code status Current Visit: Yes Status: Acute
[2019-10-26] MEDS ORDERED: HYDROmorphone 1 MG/1 ML INJ ONE (00:02)
[2019-10-26] MEDS ORDERED: DOPamine/D5W 800 MG/250 ML 800 MG/250 ML BAG IV ONE (00:50)
[2019-10-26] MEDS ORDERED: SODIUM CHLORIDE 0.9% 1000 ML 1,000 ML ONE ×3 (02:47→16:30)
[2019-10-26] MEDS: HEPARIN/ 0.45% NACL DRIP 25,000 UNIT/500 ML BAG IV SCH (03:35)
[2019-10-26] MEDS: SODIUM CHLORIDE 0.9% 1000 ML 1,000 ML IV SCH (03:36)
[2019-10-26 06:25] LABS: INR 1.15 (0.87-1.13)
[2019-10-26 06:26] LABS: BUN/Creatinine Ratio 23; Blood Urea Nitrogen 23 mg/dL (7-17); Calcium 8.4 mg/dL (8.4-10.2); Hemolysis Index 18
[2019-10-26] MEDS ORDERED: POTASSIUM CHLORIDE ER 20 MEQ TAB PO ONE (08:00)
[2019-10-26] MEDS ORDERED: POTASSIUM CHLORIDE 20 MEQ 20 MEQ/100 ML BAG IV ONE (08:00)
--- NOTE | 2019-10-26 10:16 | Progress Note ---
Assessment and Plan 31 min The high probability of a clinically significant, sudden or life threatening deterioration of the [] system(s) required my full and direct attention, intervention and personal management. The aggregate critical care time was [] minutes. This time is in addition to time spent performing reported procedures but includes the following: [x] Data Review and interpretation []x Patient assessment and monitoring of vital signs [x] Documentation [x] Medication orders and management - Patient Problems (1) Elevated troponin Current Visit: Yes Status: Acute Plan to address problem: Patient with elevated troponin possibly secondary to acute on chronic kidney disease. Patient has unremarkable cardiac isoenzymes. (2) Acute renal injury Current Visit: Yes Status: Acute Plan to address problem: Acute kidney injury most likely prerenal azotemia. Creatinine has decreased from 1.3-1. (3) Bilateral pulmonary embolism Current Visit: Yes Status: Acute (4) Full code status Current Visit: Yes Status: Acute (5) Sepsis Current Visit: Yes Status: Acute Plan to address problem: Patient sepsis ruled out. Secondary to extensive pulmonary embolism. Patient lactic acid has decreased from 8-3. ID consulted. Does not require antibiotic coverage at this time. (6) Hyperkalemia Current Visit: Yes Status: Acute Plan to address problem: Hypokalemia has been corrected. (7) Acute respiratory failure Current Visit: Yes Status: Acute Plan to address problem: Acute respiratory failure secondary to bilateral PE with heart strain. Patient placed on heparin drip today. Supportive care with oxygen via nasal cannula. Will require long dose anticoagulation. (8) COVID-19 ruled out Current Visit: Yes Status: Acute Subjective Date of service: 10/26/19 Principal diagnosis: PE , sepsis Interval history: Patient very pleasant 59-year-old with a history of emphysema presents with a chief complaint of weakness and near syncope. Patient initial presentation found to have shortness of breath. In ED patient was found to be hypotensive tachycardic further work-up in ED revealed leukocytosis and increased lactic acid as well as troponin. CT revealed bilateral pulmonary embolism with heart strain patient was therefore admitted with insulin drip and further work-up for sepsis and hypotension. Patient required pressor support. Patient currently is talking in full sentences. No evidence of acute CVA she is alert and oriented no acute distress. Objective - Constitutional Vitals: Vital Signs - 12hr 10/25/19 10/25/19 10/25/19 22:16 22:30 22:46 Temperature Pulse Rate 107 H 106 H 105 H Respiratory 18 20 24 Rate Blood Pressure 109/57 112/71 O2 Sat by Pulse Oximetry 10/25/19 10/25/19 10/25/19 22:56 23:00 23:16 Temperature Pulse Rate 105 H 105 H 105 H Respiratory 24 26 H 20 Rate Blood Pressure 94/52 94/52 98/57 O2 Sat by Pulse 61 L 90 Oximetry 10/25/19 10/25/19 10/25/19 23:30 23:46 23:55 Temperature Pulse Rate 101 H 102 H 102 H Respiratory 18 22 13 Rate Blood Pressure 98/57 125/82 94/52 O2 Sat by Pulse Oximetry 10/26/19 10/26/19 10/26/19 00:00 00:16 00:30 Temperature Pulse Rate 98 H 100 H 99 H Respiratory 20 17 18 Rate Blood Pressure 94/52 112/72 103/82 O2 Sat by Pulse Oximetry 10/26/19 10/26/19 10/26/19 00:46 01:00 01:16 Temperature Pulse Rate 99 H 100 H 91 H Respiratory 17 21 28 H Rate Blood Pressure 105/78 115/80 78/45 O2 Sat by Pulse 94 91 88 Oximetry 10/26/19 10/26/19 10/26/19 01:30 01:46 02:00 Temperature Pulse Rate 95 H 95 H 95 H Respiratory 26 H 30 H 25 H Rate Blood Pressure 78/45 97/65 97/65 O2 Sat by Pulse 91 97 93 Oximetry 10/26/19 10/26/19 10/26/19 02:10 02:20 02:30 Temperature Pulse Rate 107 H 103 H 99 H Respiratory 21 27 H 27 H Rate Blood Pressure 74/37 49/29 49/29 O2 Sat by Pulse 94 92 87 Oximetry 10/26/19 10/26/19 10/26/19 02:40 02:50 03:19 Temperature 98.8 F Pulse Rate 98 H 101 H Respiratory 23 11 L Rate Blood Pressure 49/29 115/75 O2 Sat by Pulse 94 93 Oximetry 10/26/19 10/26/19 10/26/19 05:35 08:16 08:20 Temperature Pulse Rate 97 H 98 H Respiratory 20 24 Rate Blood Pressure 100/69 O2 Sat by Pulse 95 96 96 Oximetry 09/01/0310/26/19 10/26/19 08:39 08:40 08:50 Temperature Pulse Rate 101 H 99 H 100 H Respiratory 24 16 18 Rate Blood Pressure 121/99 O2 Sat by Pulse 96 96 96 Oximetry 10/26/19 10/26/19 10/26/19 09:00 09:10 09:20 Temperature Pulse Rate 99 H 101 H 99 H Respiratory 14 20 17 Rate Blood Pressure 104/65 104/65 90/60 O2 Sat by Pulse 96 96 97 Oximetry 10/26/19 09:30 Temperature Pulse Rate 100 H Respiratory 18 Rate Blood Pressure 107/85 O2 Sat by Pulse 97 Oximetry General appearance: Present: no acute distress, well-nourished - EENT Eyes: PERRL, EOM intact ENT: hearing intact, clear oral mucosa Ears: bilateral: normal - Neck Neck: supple, normal ROM - Respiratory Respiratory effort: normal Respiratory: bilateral: diminished - Breasts Breasts: normal - Cardiovascular Rhythm: regular Heart Sounds: Present: S1 & S2. Absent: gallop, rub Extremities: pulses intact, No edema, normal color, Full ROM Extremity abnormal: other (Changes consistent with severe rheumatoid arthritis. Ulnar deviation.) - Gastrointestinal General gastrointestinal: Present: soft, non-tender, non-distended, normal bowel sounds - Genitourinary Female genitourinary: normal - Integumentary Integumentary: clear, warm, dry - Musculoskeletal Musculoskeletal: strength equal bilaterally, generalized weakness - Neurologic Neurologic: moves all extremities - Psychiatric Psychiatric: memory intact, appropriate mood/affect, intact judgment & insight - Labs CBC & Chem 7: 10/25/19 21:50 10/26/19 04:48 Labs: Abnormal lab results 10/25/19 10/25/19 10/25/19 Range/Units 17:40 17:40 17:40 WBC 20.4 H (4.5-11.0) K/mm3 RDW 18.9 H (13.2-15.2) % Plt Count (140-440) K/mm3 Seg Neuts % (Manual) 73.0 H (40.0-70.0) % Seg Neutrophils # Man 14.9 H (1.8-7.7) K/mm3 INR (0.87-1.13) D-Dimer > 94902 H (0-234) ng/mlDDU Heparin Anti-Xa Level (0.3-0.7) U.I./ml ABG pO2 (80.0-90.0) mm Hg ABG O2 Saturation (95.0-99.0) % ABG Base Excess (-2.0-3.0) mmol/L Oxyhemoglobin (95.0-99.0) % Potassium 2.2 L* (3.6-5.0) mmol/L Chloride 91.3 L (98-107) mmol/L BUN 22 H (7-17) mg/dL Creatinine 1.3 H (0.6-1.2) mg/dL Glucose 202 H (65-100) mg/dL Lactic Acid (0.7-2.0) mmol/L Lactate Dehydrogenase (91-180) units/L Troponin T 0.193 H* (0.00-0.029) ng/mL C-Reactive Protein (0.00-1.30) mg/dL HDL Cholesterol 85 H (40-59) mg/dL 10/25/19 10/25/19 10/25/19 Range/Units 17:40 17:40 17:40 WBC (4.5-11.0) K/mm3 RDW (13.2-15.2) % Plt Count (140-440) K/mm3 Seg Neuts % (Manual) (40.0-70.0) % Seg Neutrophils # Man (1.8-7.7) K/mm3 INR (0.87-1.13) D-Dimer > 17124 H (0-234) ng/mlDDU Heparin Anti-Xa Level (0.3-0.7) U.I./ml ABG pO2 (80.0-90.0) mm Hg ABG O2 Saturation (95.0-99.0) % ABG Base Excess (-2.0-3.0) mmol/L Oxyhemoglobin (95.0-99.0) % Potassium (3.6-5.0) mmol/L Chloride (98-107) mmol/L BUN (7-17) mg/dL Creatinine (0.6-1.2) mg/dL Glucose 205 H (65-100) mg/dL Lactic Acid 8.00 H* (0.7-2.0) mmol/L Lactate Dehydrogenase 322 H (91-180) units/L Troponin T (0.00-0.029) ng/mL C-Reactive Protein 2.50 H (0.00-1.30) mg/dL HDL Cholesterol (40-59) mg/dL 10/25/19 10/25/19 10/25/19 Range/Units 17:45 20:09 20:09 WBC (4.5-11.0) K/mm3 RDW (13.2-15.2) % Plt Count (140-440) K/mm3 Seg Neuts % (Manual) (40.0-70.0) % Seg Neutrophils # Man (1.8-7.7) K/mm3 INR (0.87-1.13) D-Dimer (0-234) ng/mlDDU Heparin Anti-Xa Level (0.3-0.7) U.I./ml ABG pO2 71.5 L (80.0-90.0) mm Hg ABG O2 Saturation 94.6 L (95.0-99.0) % ABG Base Excess -2.3 L (-2.0-3.0) mmol/L Oxyhemoglobin 91.6 L (95.0-99.0) % Potassium 3.0 L D (3.6-5.0) mmol/L Chloride (98-107) mmol/L BUN (7-17) mg/dL Creatinine (0.6-1.2) mg/dL Glucose (65-100) mg/dL Lactic Acid 3.40 H* (0.7-2.0) mmol/L Lactate Dehydrogenase (91-180) units/L Troponin T (0.00-0.029) ng/mL C-Reactive Protein (0.00-1.30) mg/dL HDL Cholesterol (40-59) mg/dL 10/25/19 10/26/19 10/26/19 Range/Units 21:50 04:48 04:48 WBC (4.5-11.0) K/mm3 RDW (13.2-15.2) % Plt Count 127 L (140-440) K/mm3 Seg Neuts % (Manual) (40.0-70.0) % Seg Neutrophils # Man (1.8-7.7) K/mm3 INR 1.15 H (0.87-1.13) D-Dimer (0-234) ng/mlDDU Heparin Anti-Xa Level 0.83 H (0.3-0.7) U.I./ml ABG pO2 (80.0-90.0) mm Hg ABG O2 Saturation (95.0-99.0) % ABG Base Excess (-2.0-3.0) mmol/L Oxyhemoglobin (95.0-99.0) % Potassium 2.8 L* (3.6-5.0) mmol/L Chloride 97.0 L (98-107) mmol/L BUN 23 H (7-17) mg/dL Creatinine (0.6-1.2) mg/dL Glucose 131 H (65-100) mg/dL Lactic Acid (0.7-2.0) mmol/L Lactate Dehydrogenase (91-180) units/L Troponin T (0.00-0.029) ng/mL C-Reactive Protein (0.00-1.30) mg/dL HDL Cholesterol (40-59) mg/dL - Imaging and cardiology Chest x-ray: report reviewed CT scan - chest: report reviewed, image reviewed US - abdomen: image reviewed HEART Score - HEART Score Troponin: Troponin T 0.193 ng/mL (0.00-0.029) H* 10/25/19 17:40
[2019-10-26] MEDS: HYDROcodone/ACETAMINOPHEN 10-325MG TAB PO PRN ×2 (11:19→23:57)
--- NOTE | 2019-10-26 12:05 | Consultation ---
History of Present Illness Consult date: 10/26/19 Requesting physician: PENNIE CALDWELL Reason for consult: pulmonary embolism History of present illness: 59 y/o obese female with severe RA since 98, essentially wheelchair bound admitted with bilateral PE. Started on heparin drip and dopamine secondary to hypotension. Transitioned to the ICU. Awake and alert on 2 liters with good sats but still hypotensive. Spoke with vascular surgery this am who has agreed to see the patient. Past History Past Medical History: COPD Past Surgical History: No surgical history Social history: no significant social history Family history: no significant family history Medications and Allergies Allergies Allergy/AdvReac Type Severity Reaction Status Date / Time diclofenac [From Voltaren] Allergy Hives Verified 10/25/19 18:02 Home Medications Medication Instructions Recorded Confirmed Last Taken Type Amitriptyline [Elavil] 25 mg PO QHS 10/26/19 10/26/19 Unknown History Cyclobenzaprine HCl [Flexeril 5 MG 5 mg PO TID 10/26/19 10/26/19 Unknown History TAB] Furosemide [Lasix TAB] 40 mg PO QDAY 10/26/19 10/26/19 Unknown History Gabapentin 300 mg PO TID 10/26/19 10/26/19 Unknown History Ibuprofen [Motrin] 800 mg PO Q8HR PRN 10/26/19 10/26/19 Unknown History predniSONE [Deltasone] 20 mg PO QDAY 10/26/19 10/26/19 Unknown History Active Meds: Active Medications Acetaminophen (Tylenol) 650 mg PO Q6H PRN PRN Reason: Pain, Mild (1-3) Acetaminophen/Hydrocodone Bitart ([place] 10/325) 1 each PO Q8H PRN PRN Reason: Pain, Moderate (4-6) Last Admin: 10/26/19 11:19 Dose: 1 each Documented by: Amitriptyline HCl (Elavil) 25 mg PO QHS KATEY Gabapentin (Gabapentin) 300 mg PO TID KATEY Hydromorphone HCl (Dilaudid) 0.25 mg IV Q4H PRN PRN Reason: Pain, Moderate (4-6) Heparin Sodium/Sodium Chloride (Heparin/ 0.45% Nacl-25,000 Unit/500 Ml) 25,000 unit in 500 mls @ 29 mls/hr IV TITR KATEY; Protocol Last Titration: 10/26/19 07:30 Dose: 1,350 units/hr, 27 mls/hr Documented by: Dopamine HCl/Dextrose (Intropin Drip 800 Mg/D5w 250 Ml) 800 mg in 250 mls @ 3.742 mls/hr IV TITR ONE; Protocol Stop: 10/28/19 17:59 Last Titration: 10/26/19 07:59 Dose: 8 mcg/kg/min, 14.969 mls/hr Documented by: Sodium Chloride (Nacl 0.9% 1000 Ml) 1,000 mls @ 125 mls/hr IV DIRECT KATEY Last Admin: 10/26/19 03:36 Dose: 125 mls/hr Documented by: Magnesium Hydroxide (Milk Of Magnesia) 30 ml PO Q4H PRN PRN Reason: Constipation Ondansetron HCl (Zofran) 4 mg IV Q8H PRN PRN Reason: Nausea And Vomiting Sodium Chloride (Sodium Chloride Flush Syringe 10 Ml) 10 ml IV BID PENDING SALE TO [facility] Last Admin: 10/26/19 09:05 Dose: 10 ml Documented by: Sodium Chloride (Sodium Chloride Flush Syringe 10 Ml) 10 ml IV PRN PRN PRN Reason: LINE FLUSH Review of Systems All systems: negative Physical Examination Vital signs: Vital Signs Temp Pulse Resp BP Pulse Ox 98.5 F 118 H 24 89/58 86 10/25/19 17:38 10/25/19 17:38 10/25/19 17:38 10/25/19 17:38 10/25/19 17:38 General appearance: no acute distress, alert, other (morbidly obese) Eyes: non-icteric ENT: oropharynx moist Neck: supple, other (large in circumference) Effort: normal Ascultation: Bilateral: diminished breath sounds Percussion: Bilateral: not dull Tactile fremitus: Bilateral: normal Cardiovascular: regular rate and rhythm Gastrointestinal: soft Extremities: no edema, pink and warm Results - Laboratory Findings CBC and BMP: 10/25/19 21:50 10/26/19 04:48 ABG ABG pH 7.397 pH Units (7.350-7.450) 10/25/19 17:45 ABG pCO2 36.6 mm Hg 10/25/19 17:45 ABG pO2 71.5 mm Hg (80.0-90.0) L 10/25/19 17:45 ABG O2 Saturation 94.6 % (95.0-99.0) L 10/25/19 17:45 PT/INR, D-dimer PT 14.8 Sec. (12.2-14.9) 10/26/19 04:48 INR 1.15 (0.87-1.13) H 10/26/19 04:48 D-Dimer > 58400 ng/mlDDU (0-234) H 10/25/19 17:40 D-Dimer > 10559 ng/mlDDU (0-234) H 10/25/19 17:40 Abnormal lab findings: Abnormal Labs 10/25/19 10/25/19 10/25/19 17:40 17:40 17:40 WBC 20.4 H RDW 18.9 H Plt Count Seg Neuts % (Manual) 73.0 H Seg Neutrophils # Man 14.9 H INR D-Dimer > 48587 H Heparin Anti-Xa Level ABG pO2 ABG O2 Saturation ABG Base Excess Oxyhemoglobin Potassium 2.2 L* Chloride 91.3 L BUN 22 H Creatinine 1.3 H Glucose 202 H Lactic Acid Lactate Dehydrogenase Troponin T 0.193 H* C-Reactive Protein HDL Cholesterol 85 H 10/25/19 10/25/19 10/25/19 17:40 17:40 17:40 WBC RDW Plt Count Seg Neuts % (Manual) Seg Neutrophils # Man INR D-Dimer > 22885 H Heparin Anti-Xa Level ABG pO2 ABG O2 Saturation ABG Base Excess Oxyhemoglobin Potassium Chloride BUN Creatinine Glucose 205 H Lactic Acid 8.00 H* Lactate Dehydrogenase 322 H Troponin T C-Reactive Protein 2.50 H HDL Cholesterol 10/25/19 10/25/19 10/25/19 17:45 20:09 20:09 WBC RDW Plt Count Seg Neuts % (Manual) Seg Neutrophils # Man INR D-Dimer Heparin Anti-Xa Level ABG pO2 71.5 L ABG O2 Saturation 94.6 L ABG Base Excess -2.3 L Oxyhemoglobin 91.6 L Potassium 3.0 L D Chloride BUN Creatinine Glucose Lactic Acid 3.40 H* Lactate Dehydrogenase Troponin T C-Reactive Protein HDL Cholesterol 10/25/19 10/26/19 10/26/19 21:50 04:48 04:48 WBC RDW Plt Count 127 L Seg Neuts % (Manual) Seg Neutrophils # Man INR 1.15 H D-Dimer Heparin Anti-Xa Level 0.83 H ABG pO2 ABG O2 Saturation ABG Base Excess Oxyhemoglobin Potassium 2.8 L* Chloride 97.0 L BUN 23 H Creatinine Glucose 131 H Lactic Acid Lactate Dehydrogenase Troponin T C-Reactive Protein HDL Cholesterol - Diagnostic Findings Chest x-ray: image reviewed CT scan - chest: image reviewed Assessment and Plan 59 y/o, obese female with severe RA and essentially wheelchair bound found to have bilateral PE, Hypoxemia and Hypotension. 1. Will consult vascular, appears to be a candidate for EKOS 2. Continue heparin drip 3. Will need LE dopplers as well, could be source given poor mobility 4. NPO now 5. Hypercoag work up as an outpatient 6. Wean Dopamine for MAPs>65 CCT 31 minutes.
[2019-10-26 12:24] LABS: Bilirubin,Urine NEG (Negative); Blood,Urine NEG (Negative); Color,Urine Yellow (Yellow); Mucus,Urine FEW /HPF; Urobilinogen,Urine < 2.0 mg/dL (<2.0)
[2019-10-26] MEDS: GABAPENTIN 300 MG CAP PO SCH ×2 (13:30→21:15)
--- NOTE | 2019-10-26 14:51 | Consultation ---
History of Present Illness - Reason for Consult Consult date: 10/26/19 Bilateral Pulmonary Emboli With Evidence of Right Heart Strain Requesting physician: ROSHAN WOLF - History of Present Illness The patient is a 59-year-old female with a history of prediabetes, os teoarthritis, and morbid obesity. She presented to the emergency department with a complaint of 2 days of feeling sweaty and fatigued and having diarrhea after every meal. She states that she has been feeling fine prior to those last 2 days. Yesterday she began to get up and felt sudden shortness of breath and called 911. Upon arrival to the emergency department she was found to be hypotensive with a systolic blood pressure in the 80s and her oxygen saturations were in the 70s. Her blood pressure improved slightly with a fluid bolus and her oxygen saturations improved with supplemental oxygen. She eventually underwent a CTA of her chest which revealed bilateral pulmonary emboli involv ing both the main pulmonary arteries with evidence of right heart strain on the CT scan. She was started on a heparin drip and admitted to the intensive care unit where she required dopamine to maintain her blood pressure. She has been continued on the dopamine for maintenance of her blood pressure so we were consulted today for possible pulmonary artery thrombolysis. The patient denies any recent surgery or history of hemoptysis, hematemesis, melena, bright red blood per rectum, intracranial bleeding, or recent trauma. She has not had any recent unintended weight loss and denies any long trips that required sitting for prolonged periods of time. She denies any family history of blood clots. She states that her breathing is somewhat better at this time. She has no additional complaints at this time. Past History Past Medical History: arthritis, COPD, diabetes (Prediabetic), hypertension, other (Morbid obesity, neuropathy) Past Surgical History: Other (ORIF of her right wrist) Social history: no significant social history Family history: no significant family history Medications and Allergies Allergies Allergy/AdvReac Type Severity Reaction Status Date / Time diclofenac [From Voltaren] Allergy Hives Verified 10/25/19 18:02 Home Medications Medication Instructions Recorded Confirmed Last Taken Type Amitriptyline [Elavil] 25 mg PO QHS 10/26/19 10/26/19 Unknown History Cyclobenzaprine HCl [Flexeril 5 MG 5 mg PO TID 10/26/19 10/26/19 Unknown History TAB] Furosemide [Lasix TAB] 40 mg PO QDAY 10/26/19 10/26/19 Unknown History Gabapentin 300 mg PO TID 10/26/19 10/26/19 Unknown History Ibuprofen [Motrin] 800 mg PO Q8HR PRN 10/26/19 10/26/19 Unknown History predniSONE [Deltasone] 20 mg PO QDAY 10/26/19 10/26/19 Unknown History Active Meds: Active Medications Acetaminophen (Tylenol) 650 mg PO Q6H PRN PRN Reason: Pain, Mild (1-3) Acetaminophen/Hydrocodone Bitart ([place] 10/325) 1 each PO Q8H PRN PRN Reason: Pain, Moderate (4-6) Last Admin: 10/26/19 11:19 Dose: 1 each Documented by: Amitriptyline HCl (Elavil) 25 mg PO QHS KATEY Gabapentin (Gabapentin) 300 mg PO TID [facility] Last Admin: 10/26/19 13:30 Dose: 300 mg Documented by: Hydromorphone HCl (Dilaudid) 0.25 mg IV Q4H PRN PRN Reason: Pain, Moderate (4-6) Heparin Sodium/Sodium Chloride (Heparin/ 0.45% Nacl-25,000 Unit/500 Ml) 25,000 unit in 500 mls @ 29 mls/hr IV TITR KATEY; Protocol Last Titration: 10/26/19 07:30 Dose: 1,350 units/hr, 27 mls/hr Documented by: Dopamine HCl/Dextrose (Intropin Drip 800 Mg/D5w 250 Ml) 800 mg in 250 mls @ 3.742 mls/hr IV TITR ONE; Protocol Stop: 10/28/19 17:59 Last Titration: 10/26/19 07:59 Dose: 8 mcg/kg/min, 14.969 mls/hr Documented by: Sodium Chloride (Nacl 0.9% 1000 Ml) 1,000 mls @ 125 mls/hr IV DIRECT KATEY Last Admin: 10/26/19 03:36 Dose: 125 mls/hr Documented by: Magnesium Hydroxide (Milk Of Magnesia) 30 ml PO Q4H PRN PRN Reason: Constipation Ondansetron HCl (Zofran) 4 mg IV Q8H PRN PRN Reason: Nausea And Vomiting Sodium Chloride (Sodium Chloride Flush Syringe 10 Ml) 10 ml IV BID [facility] Last Admin: 10/26/19 09:05 Dose: 10 ml Documented by: Sodium Chloride (Sodium Chloride Flush Syringe 10 Ml) 10 ml IV PRN PRN PRN Reason: LINE FLUSH Review of Systems All systems: negative Exam - Constitutional Vitals: Temp Pulse Resp BP Pulse Ox 98.8 F 97 H 22 101/66 96 10/26/19 03:19 10/26/19 14:30 10/26/19 14:30 10/26/19 14:30 10/26/19 14:30 General appearance: Present: no acute distress - Neck Neck: Present: supple - Respiratory Respiratory effort: normal - Cardiovascular Heart rate: 98 Rhythm: regular - Extremities Extremities: no ischemia, normal temperature Extremity abnormal: edema (Bilateral lower extremities) - Abdominal General gastrointestinal: Present: soft, non-tender, non-distended Female genitourinary: Present: deferred - Rectal Rectal Exam: deferred - Musculoskeletal Musculoskeletal: strength equal bilaterally - Psychiatric Psychiatric: appropriate mood/affect, intact judgment & insight, cooperative - Neurologic Neurologic: moves all extremities Results - Labs CBC & Chem 7: 10/25/19 21:50 10/26/19 04:48 Labs: Abnormal lab results 10/25/19 10/25/19 10/25/19 Range/Units 17:40 17:40 17:40 WBC 20.4 H (4.5-11.0) K/mm3 RDW 18.9 H (13.2-15.2) % Plt Count (140-440) K/mm3 Seg Neuts % (Manual) 73.0 H (40.0-70.0) % Seg Neutrophils # Man 14.9 H (1.8-7.7) K/mm3 INR (0.87-1.13) D-Dimer > 57135 H (0-234) ng/mlDDU Heparin Anti-Xa Level (0.3-0.7) U.I./ml ABG pO2 (80.0-90.0) mm Hg ABG O2 Saturation (95.0-99.0) % ABG Base Excess (-2.0-3.0) mmol/L Oxyhemoglobin (95.0-99.0) % Potassium 2.2 L* (3.6-5.0) mmol/L Chloride 91.3 L (98-107) mmol/L BUN 22 H (7-17) mg/dL Creatinine 1.3 H (0.6-1.2) mg/dL Glucose 202 H (65-100) mg/dL Lactic Acid (0.7-2.0) mmol/L Lactate Dehydrogenase (91-180) units/L Troponin T 0.193 H* (0.00-0.029) ng/mL C-Reactive Protein (0.00-1.30) mg/dL HDL Cholesterol 85 H (40-59) mg/dL Ur Specific [place] (1.003-1.030) 10/25/19 10/25/19 10/25/19 Range/Units 17:40 17:40 17:40 WBC (4.5-11.0) K/mm3 RDW (13.2-15.2) % Plt Count (140-440) K/mm3 Seg Neuts % (Manual) (40.0-70.0) % Seg Neutrophils # Man (1.8-7.7) K/mm3 INR (0.87-1.13) D-Dimer > 29711 H (0-234) ng/mlDDU Heparin Anti-Xa Level (0.3-0.7) U.I./ml ABG pO2 (80.0-90.0) mm Hg ABG O2 Saturation (95.0-99.0) % ABG Base Excess (-2.0-3.0) mmol/L Oxyhemoglobin (95.0-99.0) % Potassium (3.6-5.0) mmol/L Chloride (98-107) mmol/L BUN (7-17) mg/dL Creatinine (0.6-1.2) mg/dL Glucose 205 H (65-100) mg/dL Lactic Acid 8.00 H* (0.7-2.0) mmol/L Lactate Dehydrogenase 322 H (91-180) units/L Troponin T (0.00-0.029) ng/mL C-Reactive Protein 2.50 H (0.00-1.30) mg/dL HDL Cholesterol (40-59) mg/dL Ur Specific [place] (1.003-1.030) 10/25/19 10/25/19 10/25/19 Range/Units 17:45 20:09 20:09 WBC (4.5-11.0) K/mm3 RDW (13.2-15.2) % Plt Count (140-440) K/mm3 Seg Neuts % (Manual) (40.0-70.0) % Seg Neutrophils # Man (1.8-7.7) K/mm3 INR (0.87-1.13) D-Dimer (0-234) ng/mlDDU Heparin Anti-Xa Level (0.3-0.7) U.I./ml ABG pO2 71.5 L (80.0-90.0) mm Hg ABG O2 Saturation 94.6 L (95.0-99.0) % ABG Base Excess -2.3 L (-2.0-3.0) mmol/L Oxyhemoglobin 91.6 L (95.0-99.0) % Potassium 3.0 L D (3.6-5.0) mmol/L Chloride (98-107) mmol/L BUN (7-17) mg/dL Creatinine (0.6-1.2) mg/dL Glucose (65-100) mg/dL Lactic Acid 3.40 H* (0.7-2.0) mmol/L Lactate Dehydrogenase (91-180) units/L Troponin T (0.00-0.029) ng/mL C-Reactive Protein (0.00-1.30) mg/dL HDL Cholesterol (40-59) mg/dL Ur Specific [place] (1.003-1.030) 10/25/19 10/26/19 10/26/19 Range/Units 21:50 04:48 04:48 WBC (4.5-11.0) K/mm3 RDW (13.2-15.2) % Plt Count 127 L (140-440) K/mm3 Seg Neuts % (Manual) (40.0-70.0) % Seg Neutrophils # Man (1.8-7.7) K/mm3 INR 1.15 H (0.87-1.13) D-Dimer (0-234) ng/mlDDU Heparin Anti-Xa Level 0.83 H (0.3-0.7) U.I./ml ABG pO2 (80.0-90.0) mm Hg ABG O2 Saturation (95.0-99.0) % ABG Base Excess (-2.0-3.0) mmol/L Oxyhemoglobin (95.0-99.0) % Potassium 2.8 L* (3.6-5.0) mmol/L Chloride 97.0 L (98-107) mmol/L BUN 23 H (7-17) mg/dL Creatinine (0.6-1.2) mg/dL Glucose 131 H (65-100) mg/dL Lactic Acid (0.7-2.0) mmol/L Lactate Dehydrogenase (91-180) units/L Troponin T (0.00-0.029) ng/mL C-Reactive Protein (0.00-1.30) mg/dL HDL Cholesterol (40-59) mg/dL Ur Specific [place] (1.003-1.030) 10/26/19 10/26/19 Range/Units 11:37 13:52 WBC (4.5-11.0) K/mm3 RDW (13.2-15.2) % Plt Count (140-440) K/mm3 Seg Neuts % (Manual) (40.0-70.0) % Seg Neutrophils # Man (1.8-7.7) K/mm3 INR (0.87-1.13) D-Dimer (0-234) ng/mlDDU Heparin Anti-Xa Level 1.64 H (0.3-0.7) U.I./ml ABG pO2 (80.0-90.0) mm Hg ABG O2 Saturation (95.0-99.0) % ABG Base Excess (-2.0-3.0) mmol/L Oxyhemoglobin (95.0-99.0) % Potassium (3.6-5.0) mmol/L Chloride (98-107) mmol/L BUN (7-17) mg/dL Creatinine (0.6-1.2) mg/dL Glucose (65-100) mg/dL Lactic Acid (0.7-2.0) mmol/L Lactate Dehydrogenase (91-180) units/L Troponin T (0.00-0.029) ng/mL C-Reactive Protein (0.00-1.30) mg/dL HDL Cholesterol (40-59) mg/dL Ur Specific [place] 1.043 H (1.003-1.030) - Imaging and Cardiology Chest x-ray: image reviewed CT scan - chest: image reviewed Assessment and Plan The patient is a 59-year-old female who presented with shortness of breath and was found to have bilateral pulmonary emboli with evidence of right heart strain. She still requires dopamine to maintain her blood pressure and given t he thrombus burden and low risk of bleeding I believe she is a candidate for bilateral pulmonary artery thrombolysis. I have discussed the risk and benefits with the patient and she is agreeable however she states that her nephew is the power of donor services technician. I will discuss this with her nephew and plan for bilateral pulmonary artery thrombolysis. The catheters will remain in place overnight with the plan to bring her back tomorrow for removal and likely place an IVC filter with removal of the catheters. She will then be converted to oral anticoagulation for a minimum of 6 months depending on what the cause of her pulmonary embolus is. I discussed this with the patient who expressed underst anding.
[2019-10-26] MEDS ORDERED: HEPARIN 10,000 UNITS/10 ML VIAL ONE (14:52)
[2019-10-26] MEDS ORDERED: HEPARIN/NS 5000 UNIT/500ML 1,000 ML IR ONE (14:52)
[2019-10-26] MEDS ORDERED: HEPARIN/ 0.45% NACL DRIP 25,000 UNIT/500 ML BAG ONE ×2 (15:19→16:30)
[2019-10-26] MEDS ORDERED: SODIUM CHLORIDE 0.9% 1000 ML 1,000 ML SHEATH SCH (15:30)
[2019-10-26] MEDS ORDERED: SODIUM CHLORIDE 0.9% 1000 ML 1,000 ML IV SCH (15:30)
[2019-10-26] MEDS ORDERED: SODIUM CHLORIDE 0.9% 1000 ML 1,000 ML EKOSCLUMEN SCH ×2 (15:30)
[2019-10-26] MEDS: MIDAZOLAM 2 MG/2 ML INJ ONE ×2 (15:48→16:05)
[2019-10-26] MEDS: fentaNYL 100 MCG/2 ML INJ ONE ×2 (15:48→16:05)
[2019-10-26] MEDS: LIDOCAINE 1%/EPINEPHRINE 1:100,000 VIAL (20 ML) INFILTRATI ONE ×2 (15:48→16:07)
[2019-10-26] MEDS ORDERED: ONDANSETRON 4 MG/2 ML INJ IV PRN (16:00)
[2019-10-26] MEDS ORDERED: ALTEPLASE 10 MG in SODIUM CHLORIDE 0.9% 250ML 250 ML EKOSDLUMEN SCH (16:00)
[2019-10-26] MEDS ORDERED: HEPARIN/ 0.45% NACL DRIP 25,000 UNIT/500 ML BAG SHEATH SCH (16:00)
[2019-10-26] MEDS ORDERED: WATER FOR INJ Sterile (PF) 10 ML ONE (16:20)
[2019-10-26] MEDS ORDERED: ALTEPLASE 2 MG INJ ONE (16:20)
--- NOTE | 2019-10-26 16:56 | Consultation ---
History of Present Illness - Reason for Consult Consult date: 10/26/19 - History of Present Illness 59-year-old female past medical history rheumatoid arthritis with severe debility, obesity, prediabetes presented to the hospital complaining of diaphoresis, fatigue, diarrhea. She felt sudden shortness of breath yesterday and that is why she called 911. She is found to be hypotensive with low oxygen saturations. She had a CTA which showed bilateral pulmonary emboli right heart strain. She was started on anticoagulation. She remains hypotensive. Afebrile with a white count of 20. COVID-19 testing negative. Current antibiotics presently. Procalcitonin is normal. Blood cultures cu rrently pending. Imaging personally reviewed: Chest CTA: Bilateral pulmonary embolism with right heart strain. Review of Systems: Bold if positive, otherwise negative General: fevers, chills, rigors HEENT: visual disturbance, diplopia, eye pain Respiratory: cough, sputum, hemoptysis, shortness of breath Cardiovascular: chest pain, syncope Gastrointestinal: nausea, vomiting, diarrhea, abdominal pain Genitourinary: dysuria, hematuria, flank pain Musculoskeletal: neck pain, back pain, joint pain, edema Neurologic: headaches, seizures Hematologic: easy bruising or bleeding Endocrine: night sweats, acute weight loss Skin: rash, jaundice, redness Psychiatric: suicidal, homicidal ideation Past History Past Medical History: arthritis, COPD, diabetes (Prediabetic), hypertension, other (Morbid obesity, neuropathy) Past Surgical History: Other (ORIF of her right wrist) Social history: no significant social history Family history: no significant family history Medications and Allergies Allergies Allergy/AdvReac Type Severity Reaction Status Date / Time diclofenac [From Voltaren] Allergy Hives Verified 10/25/19 18:02 Home Medications Medication Instructions Recorded Confirmed Last Taken Type Amitriptyline [Elavil] 25 mg PO QHS 10/26/19 10/26/19 Unknown History Cyclobenzaprine HCl [Flexeril 5 MG 5 mg PO TID 10/26/19 10/26/19 Unknown History TAB] Furosemide [Lasix TAB] 40 mg PO QDAY 10/26/19 10/26/19 Unknown History Gabapentin 300 mg PO TID 10/26/19 10/26/19 Unknown History Ibuprofen [Motrin] 800 mg PO Q8HR PRN 10/26/19 10/26/19 Unknown History predniSONE [Deltasone] 20 mg PO QDAY 10/26/19 10/26/19 Unknown History Active Meds: Active Medications Acetaminophen (Tylenol) 650 mg PO Q6H PRN PRN Reason: Pain, Mild (1-3) Acetaminophen/Hydrocodone Bitart ([place] 10/325) 1 each PO Q8H PRN PRN Reason: Pain, Moderate (4-6) Last Admin: 10/26/19 11:19 Dose: 1 each Documented by: Amitriptyline HCl (Elavil) 25 mg PO QHS KATEY Gabapentin (Gabapentin) 300 mg PO TID KATEY Last Admin: 10/26/19 13:30 Dose: 300 mg Documented by: Hydromorphone HCl (Dilaudid) 0.25 mg IV Q4H PRN PRN Reason: Pain, Moderate (4-6) Dopamine HCl/Dextrose (Intropin Drip 800 Mg/D5w 250 Ml) 800 mg in 250 mls @ 3.742 mls/hr IV TITR ONE; Protocol Stop: 10/28/19 17:59 Last Titration: 10/26/19 07:59 Dose: 8 mcg/kg/min, 14.969 mls/hr Documented by: Sodium Chloride (Nacl 0.9% 1000 Ml) 1,000 mls @ 125 mls/hr IV DIRECT KATEY Last Admin: 10/26/19 03:36 Dose: 125 mls/hr Documented by: Sodium Chloride (Nacl 0.9% 1000 Ml) 1,000 mls @ 30 mls/hr IV DIRECT KATEY Last Admin: 10/26/19 15:49 Dose: 100 mls Documented by: Alteplase, Recombinant 10 mg/ (Sodium Chloride) 250 mls @ 10 mls/hr EKOSDLUMEN DIRECT KATEY Alteplase, Recombinant 10 mg/ (Sodium Chloride) 250 mls @ 10 mls/hr IV DIRECT KATEY Sodium Chloride (Nacl 0.9% 1000 Ml) 1,000 mls @ 30 mls/hr SHEATH DIRECT KATEY Sodium Chloride (Nacl 0.9% 1000 Ml) 1,000 mls @ 35 mls/hr EKOSCLUMEN DIRECT KATEY Sodium Chloride (Nacl 0.9% 1000 Ml) 1,000 mls @ 30 mls/hr SHEATH DIRECT KATEY Sodium Chloride (Nacl 0.9% 1000 Ml) 1,000 mls @ 35 mls/hr EKOSCLUMEN DIRECT KATEY Heparin Sodium/Sodium Chloride (Heparin/ 0.45% Nacl-25,000 Unit/500 Ml) 25,000 unit in 500 mls @ 10 mls/hr SHEATH DIRECT KATEY; Protocol Heparin Sodium/Sodium Chloride (Heparin/ 0.45% Nacl-25,000 Unit/500 Ml) 25,000 unit in 500 mls @ 10 mls/hr SHEATH DIRECT KATEY; Protocol Magnesium Hydroxide (Milk Of Magnesia) 30 ml PO Q4H PRN PRN Reason: Constipation Ondansetron HCl (Zofran) 4 mg IV Q8H PRN PRN Reason: Nausea And Vomiting Sodium Chloride (Sodium Chloride Flush Syringe 10 Ml) 10 ml IV BID KATEY Last Admin: 10/26/19 09:05 Dose: 10 ml Documented by: Sodium Chloride (Sodium Chloride Flush Syringe 10 Ml) 10 ml IV PRN PRN PRN Reason: LINE FLUSH Physical Examination - Physical Exam Narrative exam: Physical Exam: Constitutional: Alert, cooperative. No acute distress. Obese. On nasal cannula Head, Ears, Nose: Normocephalic, atraumatic. External ears, nose normal Eyes: Conjunctivae/corneas clear. No icterus. No ptosis. Neck: Supple, no meningeal signs Oral: dentition fair, no thrush Cardiovascular: S1, S2 normal. Respiratory: clear to auscultation bilaterally GI: Soft, non-tender; bowel sounds normal. No peritoneal signs. Musculoskeletal: No pedal edema, no cyanosis. Skin: No rash or abscess Hem/Lymphatic: No palpable cervical or supraclavicular nodes. No lymphangitis Psych: Mood ok. Affect normal Neurological: Awake, alert, oriented. - Constitutional Vitals: Vital Signs Temp Pulse Resp BP Pulse Ox 98.8 F 97 H 22 101/66 96 10/26/19 03:19 10/26/19 14:30 10/26/19 14:30 10/26/19 14:30 10/26/19 14:30 Temperature -Last 24 Hours Temperature 98.8 F Temperature 98.5 F Results - Labs CBC & Chem 7: 10/25/19 21:50 10/26/19 04:48 Labs: Abnormal lab results 10/25/19 10/25/19 10/25/19 Range/Units 17:40 17:40 17:40 WBC 20.4 H (4.5-11.0) K/mm3 RDW 18.9 H (13.2-15.2) % Plt Count (140-440) K/mm3 Seg Neuts % (Manual) 73.0 H (40.0-70.0) % Seg Neutrophils # Man 14.9 H (1.8-7.7) K/mm3 INR (0.87-1.13) D-Dimer > 32450 H (0-234) ng/mlDDU Heparin Anti-Xa Level (0.3-0.7) U.I./ml ABG pO2 (80.0-90.0) mm Hg ABG O2 Saturation (95.0-99.0) % ABG Base Excess (-2.0-3.0) mmol/L Oxyhemoglobin (95.0-99.0) % Potassium 2.2 L* (3.6-5.0) mmol/L Chloride 91.3 L (98-107) mmol/L BUN 22 H (7-17) mg/dL Creatinine 1.3 H (0.6-1.2) mg/dL Glucose 202 H (65-100) mg/dL Lactic Acid (0.7-2.0) mmol/L Lactate Dehydrogenase (91-180) units/L Troponin T 0.193 H* (0.00-0.029) ng/mL C-Reactive Protein (0.00-1.30) mg/dL HDL Cholesterol 85 H (40-59) mg/dL Ur Specific [place] (1.003-1.030) 10/25/19 10/25/19 10/25/19 Range/Units 17:40 17:40 17:40 WBC (4.5-11.0) K/mm3 RDW (13.2-15.2) % Plt Count (140-440) K/mm3 Seg Neuts % (Manual) (40.0-70.0) % Seg Neutrophils # Man (1.8-7.7) K/mm3 INR (0.87-1.13) D-Dimer > 51426 H (0-234) ng/mlDDU Heparin Anti-Xa Level (0.3-0.7) U.I./ml ABG pO2 (80.0-90.0) mm Hg ABG O2 Saturation (95.0-99.0) % ABG Base Excess (-2.0-3.0) mmol/L Oxyhemoglobin (95.0-99.0) % Potassium (3.6-5.0) mmol/L Chloride (98-107) mmol/L BUN (7-17) mg/dL Creatinine (0.6-1.2) mg/dL Glucose 205 H (65-100) mg/dL Lactic Acid 8.00 H* (0.7-2.0) mmol/L Lactate Dehydrogenase 322 H (91-180) units/L Troponin T (0.00-0.029) ng/mL C-Reactive Protein 2.50 H (0.00-1.30) mg/dL HDL Cholesterol (40-59) mg/dL Ur Specific [place] (1.003-1.030) 10/25/19 10/25/19 10/25/19 Range/Units 17:45 20:09 20:09 WBC (4.5-11.0) K/mm3 RDW (13.2-15.2) % Plt Count (140-440) K/mm3 Seg Neuts % (Manual) (40.0-70.0) % Seg Neutrophils # Man (1.8-7.7) K/mm3 INR (0.87-1.13) D-Dimer (0-234) ng/mlDDU Heparin Anti-Xa Level (0.3-0.7) U.I./ml ABG pO2 71.5 L (80.0-90.0) mm Hg ABG O2 Saturation 94.6 L (95.0-99.0) % ABG Base Excess -2.3 L (-2.0-3.0) mmol/L Oxyhemoglobin 91.6 L (95.0-99.0) % Potassium 3.0 L D (3.6-5.0) mmol/L Chloride (98-107) mmol/L BUN (7-17) mg/dL Creatinine (0.6-1.2) mg/dL Glucose (65-100) mg/dL Lactic Acid 3.40 H* (0.7-2.0) mmol/L Lactate Dehydrogenase (91-180) units/L Troponin T (0.00-0.029) ng/mL C-Reactive Protein (0.00-1.30) mg/dL HDL Cholesterol (40-59) mg/dL Ur Specific [place] (1.003-1.030) 10/25/19 10/26/19 10/26/19 Range/Units 21:50 04:48 04:48 WBC (4.5-11.0) K/mm3 RDW (13.2-15.2) % Plt Count 127 L (140-440) K/mm3 Seg Neuts % (Manual) (40.0-70.0) % Seg Neutrophils # Man (1.8-7.7) K/mm3 INR 1.15 H (0.87-1.13) D-Dimer (0-234) ng/mlDDU Heparin Anti-Xa Level 0.83 H (0.3-0.7) U.I./ml ABG pO2 (80.0-90.0) mm Hg ABG O2 Saturation (95.0-99.0) % ABG Base Excess (-2.0-3.0) mmol/L Oxyhemoglobin (95.0-99.0) % Potassium 2.8 L* (3.6-5.0) mmol/L Chloride 97.0 L (98-107) mmol/L BUN 23 H (7-17) mg/dL Creatinine (0.6-1.2) mg/dL Glucose 131 H (65-100) mg/dL Lactic Acid (0.7-2.0) mmol/L Lactate Dehydrogenase (91-180) units/L Troponin T (0.00-0.029) ng/mL C-Reactive Protein (0.00-1.30) mg/dL HDL Cholesterol (40-59) mg/dL Ur Specific [place] (1.003-1.030) 10/26/19 10/26/19 Range/Units 11:37 13:52 WBC (4.5-11.0) K/mm3 RDW (13.2-15.2) % Plt Count (140-440) K/mm3 Seg Neuts % (Manual) (40.0-70.0) % Seg Neutrophils # Man (1.8-7.7) K/mm3 INR (0.87-1.13) D-Dimer (0-234) ng/mlDDU Heparin Anti-Xa Level 1.64 H (0.3-0.7) U.I./ml ABG pO2 (80.0-90.0) mm Hg ABG O2 Saturation (95.0-99.0) % ABG Base Excess (-2.0-3.0) mmol/L Oxyhemoglobin (95.0-99.0) % Potassium (3.6-5.0) mmol/L Chloride (98-107) mmol/L BUN (7-17) mg/dL Creatinine (0.6-1.2) mg/dL Glucose (65-100) mg/dL Lactic Acid (0.7-2.0) mmol/L Lactate Dehydrogenase (91-180) units/L Troponin T (0.00-0.029) ng/mL C-Reactive Protein (0.00-1.30) mg/dL HDL Cholesterol (40-59) mg/dL Ur Specific [place] 1.043 H (1.003-1.030) Assessment and Plan Cultures: Blood culture 10/25/2019 pending A/P: 59-year-old female past medical history rheumatoid arthritis with severe debility, obesity, prediabetes admitted with bilateral pulmonary embolism with right heart strain. #Bilateral pulmonary emboli with right heart strain: Due to her arthritis she is largely wheelchair-bound, as such at risk for pulmonary embolism. COVID-19 testing negative. Afebrile. For vascular procedure. #Leukocytosis: Likely reactive to the pulmonary emboli. Procalcitonin normal, afebrile. Agree with supportive care and monitoring, no need for antibiotics at the present time. Recs: -Remain off antibiotics. -Management, anticoagulation per primary and vascular. Thank you for the consult, we will sign off. Jolynn Montelongo MD [facility] ([facility] M: [phone] O: [phone] F: [phone]
--- NOTE | 2019-10-26 16:58 | Operative Report ---
Operative Report Operative Report: Date of Procedure: 10/26/2019 Pre-operative Diagnosis: Bilateral Pulmonary Emboli With Hypotension and Right H eart Strain Post-operative Diagnosis: Same Procedure(s): 1. Ultrasound-Guided Access Left Common Femoral Vein 2. Ultrasound-Guided Access Left Common Femoral Vein 3. Catheter in Main Pulmonary Artery 4. Nonselective Pulmonary Artery Angiogram 5. Placement of 106 x 12 cm EKOS Thrombolysis Catheter in the Right Pulmonary Artery 6. Placement of 106 x 12 cm EKOS Thrombolysis Catheter in the Right Pulmonary Artery 7. Radiologic Supervision with Interpretation 8. Monitored Moderate Sedation (Total Anesthesia Time 49 Minutes) Surgeon: Anurag Wise M.D. Pest Control Supervisor: None Anesthesia: 1% Lidocaine/Monitored Moderate Sedation Total Anesthesia Time 49 Minutes EBL: Minimal Counts: Correct Complications: None Condition: Stable Specimen: None Indication: The patient is a 59-year-old female who presented to the emergency department with complaints of shortness of breath and was found to have bilateral pulmonary emboli. She had evidence of right heart strain on the CT and has required dopamine to maintain her blood pressure in her normal range. She has no contraindication for thrombolysis so was felt that she is an adequate candidate for bilateral pulmonary artery thrombolysis. She and her nephew were given the risk, benefits, and alternative procedures and consented to the procedure. Angiographic Findings: The nonselective pulmonary artery angiogram revealed filling defects in bilateral main pulmonary arteries. It was difficult to see any filling defects in the segmental branches of the bilateral pulmonary arteries. Bilateral EKOS thrombolysis catheters were placed with the proximal treatment zone in the main pulmonary arteries and the distal tips in the segmental branches. Description of Procedure: The patient was brought to the [facility] [employer] and laid in supine position. After a timeout was performed her left groin was prepped and draped in normal sterile fashion. Ultrasound was used to identify the left common femoral vein and confirm patency. Once patency was confirmed the overlying skin and soft tissue was anesthetized with lidocaine. 2 small stab incisions were created and a and a 21-gauge micropuncture needle was used to access the common femoral vein with ultrasound guidance. A 0.018 micropuncture wire was then advanced into the vein and after removing the needle the micropuncture sheath was advanced over the wire by Seldinger technique. The wire and inner dilator were removed and a 0.038 short J-wire was advanced into the vein. Ultrasound guidance was used with the 21-gauge micropuncture needle to access the vein and the more proximal area. The 0.018 micropuncture wire was then advanced into the vein and after removing the needle the micropuncture sheath was advanced by Seldinger technique. The wire and inner dilator were removed and a short 0.03 J-wire was advanced to the vein. The micropuncture sheath was removed and then 6 Gibraltarian sheaths were advanced over both J-wire's by Seldinger technique. Both J wires were removed and both sheaths were then flushed with heparinized saline. A JR4 catheter and a 0.035 Bentson wire was then advanced and the more proximal sheath and it was advanced through the heart and into the main pulmonary artery. A nonselective pulmonary angiogram was performed with a hand-injection with the previously described findings. I then advanced the catheter wire into the right pulmonary artery and remove the JR4 catheter leaving the Bentson wire in place. I then advanced the 106 x 12 cm EKOS thrombolysis catheter over the wire and after removing the wire advanced the ultrasound catheter into the thrombolysis catheter. I then advanced the JR4 catheter and Bentson wire through the more distal sheath and advanced through the heart and into the left pulmonary artery. I advanced the wire into the distal artery and after removing the JR4 catheter advanced a second 106 x 12 cm EKOS thrombolysis catheter. I remove the wire and then advanced the ultrasound catheter into the thrombolysis catheter. I then primed both drug ports with 4 mg of TPA and each coolant port with 3000 units of heparin respectively. Each 6 Gibraltarian sheath was then primed with 2000 units of heparin respectively. The sheaths were then secured to the skin with 0 silk sutures and the catheters were secured to the sheath with 0 silk sutures. The catheters and sheaths were then dressed with sterile dressings. The patient tolerated the procedure well. All sponge, needle, and instrument counts were correct. The patient was transported back to the intensive care unit in serious but stable condition.
[2019-10-26] MEDS: ALTEPLASE 10 MG in SODIUM CHLORIDE 0.9% 250ML 250 ML IV SCH (17:20)
[2019-10-26] MEDS: HEPARIN/ 0.45% NACL DRIP 25,000 UNIT/500 ML BAG SHEATH SCH (17:20)
[2019-10-26] MEDS: SODIUM CHLORIDE 0.9% 1000 ML 1,000 ML SHEATH SCH (17:20)
[2019-10-26] MEDS: AMITRIPTYLINE 25 MG TAB PO SCH (21:15)
[2019-10-26] MEDS: POTASSIUM CHLORIDE ER 20 MEQ TAB PO SCH (21:16)
[2019-10-26] MEDS: HYDROmorphone 1 MG/1 ML INJ IV PRN (21:32)
[2019-10-26 22:00] LABS: Basophils # (Auto) 0.1 K/mm3 (0.0-0.1); Basophils % (Auto) 0.5 % (0.0-1.8); Eosinophils # (Auto) 0.1 K/mm3 (0.0-0.4); Eosinophils % (Auto) 0.5 % (0.0-4.3); Hematocrit 37.5 % (30.3-42.9); Hemoglobin 12.3 gm/dl (10.1-14.3); Lymphocytes # (Auto) 2.6 K/mm3 (1.2-5.4); Mean Corpuscular HGB Conc 33 % (30-34); Mean Corpuscular Volume 91 fl (79-97); Monocytes # (Auto) 0.6 K/mm3 (0.0-0.8); Monocytes % (Auto) 4.1 % (0.0-7.3); Platelet Count 131 K/mm3 (140-440); Red Blood Count 4.12 M/mm3 (3.65-5.03); Red Cell Distribution Width 18.4 % (13.2-15.2)
[2019-10-27] MEDS: HYDROmorphone 1 MG/1 ML INJ IV PRN (02:34)
[2019-10-27] MEDS ORDERED: DOPamine/D5W 800 MG/250 ML 800 MG/250 ML BAG IV SCH (03:06)
[2019-10-27 05:30] LABS: Basophils # (Auto) 0.1 K/mm3 (0.0-0.1); Basophils % (Auto) 0.5 % (0.0-1.8); Eosinophils # (Auto) 0.1 K/mm3 (0.0-0.4); Eosinophils % (Auto) 0.7 % (0.0-4.3); Hematocrit 35.3 % (30.3-42.9); Hemoglobin 11.7 gm/dl (10.1-14.3); Lymphocytes # (Auto) 2.2 K/mm3 (1.2-5.4); Lymphocytes % (Auto) 18.9 % (13.4-35.0); Mean Corpuscular HGB Conc 33 % (30-34); Mean Corpuscular Volume 91 fl (79-97); Monocytes # (Auto) 0.4 K/mm3 (0.0-0.8); Monocytes % (Auto) 3.6 % (0.0-7.3); Platelet Count 123 K/mm3 (140-440); Red Blood Count 3.88 M/mm3 (3.65-5.03); Red Cell Distribution Width 18.7 % (13.2-15.2)
[2019-10-27 05:40] LABS: INR 1.02 (0.87-1.13)
[2019-10-27 05:41] LABS: Partial Thromboplastin Time 30.9 Sec. (24.2-36.6)
[2019-10-27 05:46] LABS: BUN/Creatinine Ratio 24; Blood Urea Nitrogen 22 mg/dL (7-17); Hemolysis Index 7
--- NOTE | 2019-10-27 07:56 | Progress Note ---
Assessment and Plan 59 y/o, obese female with severe RA and essentially wheelchair bound found to have bilateral PE, Hypoxemia and Hypotension. 1. Continue anticoagulation 2. EKOS catheters per vascular, once out and out of window of lying flat, can remove simpson and transfer to floor if off dopamine. 3. Will need LE dopplers as well, could be source given poor mobility 4. Can eat after catheters are out. 5. Hypercoag work up as an outpatient 6. Wean Dopamine for MAPs>65, most likely some of this is adrenal insufficiency from prolonged steroid use for RA CCT 31 minutes. Subjective Date of service: 10/27/19 Principal diagnosis: PE , sepsis Interval history: Appreciate Vascular surgery help on yesterday. S/p EKOS therapy. Still hypotensive but after reviewing chart, patient chronically on Prednisone 20 and she has not been getting this. Objective Vital Signs - 12hr 10/26/19 10/26/19 10/26/19 20:00 20:04 20:15 Temperature Pulse Rate 80 91 H 90 Respiratory 20 25 H 21 Rate Blood Pressure 100/60 100/60 99/78 O2 Sat by Pulse 98 100 100 Oximetry 10/26/19 10/26/19 10/26/19 20:23 20:30 20:32 Temperature Pulse Rate 86 86 87 Respiratory 22 21 22 Rate Blood Pressure 104/68 O2 Sat by Pulse 100 100 100 Oximetry 10/26/19 10/26/19 10/26/19 20:45 21:00 21:16 Temperature Pulse Rate 93 H 90 88 Respiratory 23 21 16 Rate Blood Pressure 104/63 98/67 96/68 O2 Sat by Pulse 98 100 100 Oximetry 10/26/19 10/26/19 10/26/19 21:30 21:46 22:00 Temperature Pulse Rate 88 85 88 Respiratory 13 13 14 Rate Blood Pressure 96/68 100/67 O2 Sat by Pulse 93 96 98 Oximetry 10/26/19 10/26/19 10/26/19 22:16 22:30 22:45 Temperature Pulse Rate 89 89 89 Respiratory 9 L 19 15 Rate Blood Pressure 106/69 110/72 93/63 O2 Sat by Pulse 95 96 94 Oximetry 10/26/19 10/26/19 10/26/19 23:00 23:15 23:30 Temperature Pulse Rate 89 88 87 Respiratory 13 15 11 L Rate Blood Pressure 105/69 110/70 110/70 O2 Sat by Pulse 96 95 98 Oximetry 10/26/19 10/26/19 10/27/19 23:46 23:48 00:00 Temperature 98.7 F Pulse Rate 88 87 Respiratory 12 14 Rate Blood Pressure 99/20 94/40 O2 Sat by Pulse 84 99 Oximetry 10/27/19 10/27/19 10/27/19 00:03 00:16 00:30 Temperature Pulse Rate 87 89 Respiratory 16 20 Rate Blood Pressure 97/63 106/64 O2 Sat by Pulse 96 96 96 Oximetry 10/27/19 10/27/19 10/27/19 00:45 01:00 01:15 Temperature Pulse Rate 86 86 86 Respiratory 21 21 22 Rate Blood Pressure 92/65 96/63 104/65 O2 Sat by Pulse 98 97 98 Oximetry 10/27/19 10/27/19 10/27/19 01:30 01:45 02:00 Temperature Pulse Rate 87 88 88 Respiratory 19 21 19 Rate Blood Pressure 108/67 99/63 93/65 O2 Sat by Pulse 98 97 97 Oximetry 10/27/19 10/27/19 10/27/19 02:15 02:30 02:45 Temperature Pulse Rate 88 88 93 H Respiratory 19 15 17 Rate Blood Pressure 94/63 84/56 86/59 O2 Sat by Pulse 98 97 90 Oximetry 10/27/19 10/27/19 10/27/19 03:00 03:13 03:15 Temperature 98.8 F Pulse Rate 96 H 97 H Respiratory 16 16 Rate Blood Pressure 88/58 84/56 O2 Sat by Pulse 96 94 Oximetry 10/27/19 10/27/19 10/27/19 03:30 03:45 04:00 Temperature Pulse Rate 98 H 100 H 101 H Respiratory 16 14 15 Rate Blood Pressure 92/62 89/71 98/65 O2 Sat by Pulse 94 97 95 Oximetry 10/27/19 10/27/19 10/27/19 04:15 04:30 04:45 Temperature Pulse Rate 102 H 101 H 100 H Respiratory 18 18 17 Rate Blood Pressure 91/66 97/60 92/63 O2 Sat by Pulse 91 94 94 Oximetry 10/27/19 10/27/19 10/27/19 05:00 05:16 05:30 Temperature Pulse Rate 99 H 96 H 98 H Respiratory 16 20 18 Rate Blood Pressure 110/65 111/86 105/63 O2 Sat by Pulse 96 98 97 Oximetry 10/27/19 10/27/19 05:45 06:00 Temperature Pulse Rate 97 H 98 H Respiratory 18 20 Rate Blood Pressure 102/62 102/62 O2 Sat by Pulse 98 97 Oximetry Constitutional: no acute distress, alert, other (morbidly obese) Eyes: non-icteric ENT: oropharynx moist Neck: supple, other (large in circumference) Effort: normal Ascultation: Bilateral: diminished breath sounds Percussion: Bilateral: not dull Tactile fremitus: Bilateral: normal Cardiovascular: regular rate and rhythm Gastrointestinal: soft Extremities: no edema, pink and warm CBC and BMP: 10/27/19 05:00 10/27/19 05:00 ABG, PT/INR, D-dimer: ABG ABG pH 7.397 pH Units (7.350-7.450) 10/25/19 17:45 ABG pCO2 36.6 mm Hg 10/25/19 17:45 ABG pO2 71.5 mm Hg (80.0-90.0) L 10/25/19 17:45 ABG O2 Saturation 94.6 % (95.0-99.0) L 10/25/19 17:45 PT/INR, D-dimer PT 13.5 Sec. (12.2-14.9) 10/27/19 05:00 INR 1.02 (0.87-1.13) 10/27/19 05:00 D-Dimer > 45405 ng/mlDDU (0-234) H 10/25/19 17:40 D-Dimer > 75504 ng/mlDDU (0-234) H 10/25/19 17:40 Abnormal lab findings: Abnormal Labs 10/25/19 10/25/19 10/25/19 17:40 17:40 17:40 WBC 20.4 H RDW 18.9 H Plt Count Seg Neutrophils % Seg Neuts % (Manual) 73.0 H Seg Neutrophils # Seg Neutrophils # Man 14.9 H INR D-Dimer > 25870 H Heparin Anti-Xa Level ABG pO2 ABG O2 Saturation ABG Base Excess Oxyhemoglobin Sodium Potassium 2.2 L* Chloride 91.3 L BUN 22 H Creatinine 1.3 H Glucose 202 H Lactic Acid Calcium Lactate Dehydrogenase Troponin T 0.193 H* C-Reactive Protein HDL Cholesterol 85 H Ur Specific Kemp 10/25/19 10/25/19 10/25/19 17:40 17:40 17:40 WBC RDW Plt Count Seg Neutrophils % Seg Neuts % (Manual) Seg Neutrophils # Seg Neutrophils # Man INR D-Dimer > 35358 H Heparin Anti-Xa Level ABG pO2 ABG O2 Saturation ABG Base Excess Oxyhemoglobin Sodium Potassium Chloride BUN Creatinine Glucose 205 H Lactic Acid 8.00 H* Calcium Lactate Dehydrogenase 322 H Troponin T C-Reactive Protein 2.50 H HDL Cholesterol Ur Specific Kemp 10/25/19 10/25/19 10/25/19 17:45 20:09 20:09 WBC RDW Plt Count Seg Neutrophils % Seg Neuts % (Manual) Seg Neutrophils # Seg Neutrophils # Man INR D-Dimer Heparin Anti-Xa Level ABG pO2 71.5 L ABG O2 Saturation 94.6 L ABG Base Excess -2.3 L Oxyhemoglobin 91.6 L Sodium Potassium 3.0 L D Chloride BUN Creatinine Glucose Lactic Acid 3.40 H* Calcium Lactate Dehydrogenase Troponin T C-Reactive Protein HDL Cholesterol Ur Specific Kemp 10/25/19 10/26/19 10/26/19 21:50 04:48 04:48 WBC RDW Plt Count 127 L Seg Neutrophils % Seg Neuts % (Manual) Seg Neutrophils # Seg Neutrophils # Man INR 1.15 H D-Dimer Heparin Anti-Xa Level 0.83 H ABG pO2 ABG O2 Saturation ABG Base Excess Oxyhemoglobin Sodium Potassium 2.8 L* Chloride 97.0 L BUN 23 H Creatinine Glucose 131 H Lactic Acid Calcium Lactate Dehydrogenase Troponin T C-Reactive Protein HDL Cholesterol Ur Specific Kemp 10/26/19 10/26/19 10/26/19 11:37 13:52 21:45 WBC 13.9 H RDW 18.4 H Plt Count 131 L Seg Neutrophils % 75.9 H Seg Neuts % (Manual) Seg Neutrophils # 10.5 H Seg Neutrophils # Man INR D-Dimer Heparin Anti-Xa Level 1.64 H ABG pO2 ABG O2 Saturation ABG Base Excess Oxyhemoglobin Sodium Potassium Chloride BUN Creatinine Glucose Lactic Acid Calcium Lactate Dehydrogenase Troponin T C-Reactive Protein HDL Cholesterol Ur Specific Kemp 1.043 H 10/26/19 10/27/19 10/27/19 21:45 05:00 05:00 WBC 11.5 H RDW 18.7 H Plt Count 123 L Seg Neutrophils % 76.3 H Seg Neuts % (Manual) Seg Neutrophils # 8.8 H Seg Neutrophils # Man INR D-Dimer Heparin Anti-Xa Level 1.43 H 0.18 L ABG pO2 ABG O2 Saturation ABG Base Excess Oxyhemoglobin Sodium Potassium Chloride BUN Creatinine Glucose Lactic Acid Calcium Lactate Dehydrogenase Troponin T C-Reactive Protein HDL Cholesterol Ur Specific Kemp 10/27/19 05:00 WBC RDW Plt Count Seg Neutrophils % Seg Neuts % (Manual) Seg Neutrophils # Seg Neutrophils # Man INR D-Dimer Heparin Anti-Xa Level ABG pO2 ABG O2 Saturation ABG Base Excess Oxyhemoglobin Sodium 133 L Potassium 3.2 L Chloride BUN 22 H Creatinine Glucose 146 H Lactic Acid Calcium 8.0 L Lactate Dehydrogenase Troponin T C-Reactive Protein HDL Cholesterol Ur Specific Kemp
[2019-10-27] MEDS: HYDROCORTISONE SOD SUCC 100 MG/2 ML VIAL IV SCH ×3 (08:34→21:01)
[2019-10-27] MEDS: GABAPENTIN 300 MG CAP PO SCH ×3 (08:34→20:53)
[2019-10-27] MEDS: HYDROcodone/ACETAMINOPHEN 10-325MG TAB PO PRN ×2 (08:37→21:06)
[2019-10-27 08:52] LABS: Basophils # (Auto) 0.1 K/mm3 (0.0-0.1); Basophils % (Auto) 0.5 % (0.0-1.8); Eosinophils # (Auto) 0.1 K/mm3 (0.0-0.4); Eosinophils % (Auto) 0.8 % (0.0-4.3); Hematocrit 35.3 % (30.3-42.9); Hemoglobin 11.5 gm/dl (10.1-14.3); Lymphocytes % (Auto) 17.4 % (13.4-35.0); Mean Corpuscular HGB Conc 33 % (30-34); Mean Corpuscular Volume 91 fl (79-97); Monocytes # (Auto) 0.4 K/mm3 (0.0-0.8); Monocytes % (Auto) 3.9 % (0.0-7.3); Platelet Count 112 K/mm3 (140-440); Red Blood Count 3.88 M/mm3 (3.65-5.03); Red Cell Distribution Width 18.6 % (13.2-15.2)
[2019-10-27 08:54] LABS: Fibrinogen 368 mg/dl (211-480)
[2019-10-27 09:03] LABS: BUN/Creatinine Ratio 26; Blood Urea Nitrogen 21 mg/dL (7-17); Calcium 8.2 mg/dL (8.4-10.2); Hemolysis Index 1
[2019-10-27] MEDS: POTASSIUM CHLORIDE ER 20 MEQ TAB PO SCH (09:03)
[2019-10-27] MEDS ORDERED: HEPARIN 10,000 UNITS/10 ML VIAL ONE (12:39)
[2019-10-27] MEDS ORDERED: HEPARIN/NS 5000 UNIT/500ML 1,000 ML IR ONE (12:39)
[2019-10-27] MEDS ORDERED: MIDAZOLAM 2 MG/2 ML INJ ONE (12:40)
[2019-10-27] MEDS ORDERED: fentaNYL 100 MCG/2 ML INJ ONE (12:40)
[2019-10-27] MEDS ORDERED: SODIUM CHLORIDE 0.9% 500 ML 500 ML ONE (12:41)
[2019-10-27] MEDS: LIDOCAINE (2%) 20 MG/1 ML VIAL 20 ML MDV INFILTRATI ONE ×2 (13:27→13:29)
--- NOTE | 2019-10-27 13:38 | Progress Note ---
Assessment and Plan 31 min The high probability of a clinically significant, sudden or life threatening deterioration of the [] system(s) required my full and direct attention, intervention and personal management. The aggregate critical care time was [] minutes. This time is in addition to time spent performing reported procedures but includes the following: [x] Data Review and interpretation []x Patient assessment and monitoring of vital signs [x] Documentation [x] Medication orders and management - Patient Problems (1) Elevated troponin Current Visit: Yes Status: Acute Plan to address problem: Patient with elevated troponin possibly secondary to acute on chronic kidney disease. Patient has unremarkable cardiac isoenzymes. (2) Acute renal injury Current Visit: Yes Status: Acute Plan to address problem: Has resolved. Creatinine 0.8. Most likely mild prerenal azotemia. No adjustment needed at this time. (3) Bilateral pulmonary embolism Current Visit: Yes Status: Acute Plan to address problem: Patient status post EKOS lysis drain placed IVC placed vascular. Patient will require bilateral lower extremity Doppler upon discharge to rule out clots. Wean off pressors at this particular time. (4) Full code status Current Visit: Yes Status: Acute (5) Sepsis Current Visit: Yes Status: Acute Plan to address problem: No evidence of sepsis. Sepsis has been ruled out. Secondary to tumor burden. Adrenal insufficiency from chronic steroid use. (6) Hyperkalemia Current Visit: Yes Status: Acute Plan to address problem: Hypokalemia has been corrected. (7) Acute respiratory failure Current Visit: Yes Status: Acute Plan to address problem: Acute respiratory failure secondary to bilateral PE with heart strain. Patient placed on heparin drip today. Supportive care with oxygen via nasal cannula. Will require long dose anticoagulation. (8) COVID-19 ruled out Current Visit: Yes Status: Acute Subjective Date of service: 10/27/19 Principal diagnosis: PE , sepsis Interval history: 59-year-old male very nice history of severe rheumatoid arthritis bedbound. Patient found to have bilateral pulmonary embolism on exam. Status post EKOS with catheter at bedside per vascular. Patient remains on low-dose pressors today as attempted wean this morning. Patient resting comfortably. No new events after surgical procedure. Objective - Constitutional Vitals: Vital Signs - 12hr 10/27/19 10/27/19 10/27/19 01:45 02:00 02:15 Temperature Pulse Rate 88 88 88 Respiratory 21 19 19 Rate Blood Pressure 99/63 93/65 94/63 O2 Sat by Pulse 97 97 98 Oximetry 10/27/19 10/27/19 10/27/19 02:30 02:45 03:00 Temperature Pulse Rate 88 93 H 96 H Respiratory 15 17 16 Rate Blood Pressure 84/56 86/59 88/58 O2 Sat by Pulse 97 90 96 Oximetry 10/27/19 10/27/19 10/27/19 03:13 03:15 03:30 Temperature 98.8 F Pulse Rate 97 H 98 H Respiratory 16 16 Rate Blood Pressure 84/56 92/62 O2 Sat by Pulse 94 94 Oximetry 10/27/19 10/27/19 10/27/19 03:45 04:00 04:15 Temperature Pulse Rate 100 H 101 H 102 H Respiratory 14 15 18 Rate Blood Pressure 89/71 98/65 91/66 O2 Sat by Pulse 97 95 91 Oximetry 10/27/19 10/27/19 10/27/19 04:30 04:45 05:00 Temperature Pulse Rate 101 H 100 H 99 H Respiratory 18 17 16 Rate Blood Pressure 97/60 92/63 110/65 O2 Sat by Pulse 94 94 96 Oximetry 10/27/19 10/27/19 10/27/19 05:16 05:30 05:45 Temperature Pulse Rate 96 H 98 H 97 H Respiratory 20 18 18 Rate Blood Pressure 111/86 105/63 102/62 O2 Sat by Pulse 98 97 98 Oximetry 10/27/19 10/27/19 10/27/19 06:00 06:16 06:30 Temperature Pulse Rate 98 H 99 H 98 H Respiratory 20 23 19 Rate Blood Pressure 102/62 100/69 106/69 O2 Sat by Pulse 97 97 97 Oximetry 10/27/19 10/27/19 10/27/19 06:45 07:00 07:15 Temperature Pulse Rate 99 H 96 H 96 H Respiratory 15 17 14 Rate Blood Pressure 101/64 111/83 121/77 O2 Sat by Pulse 94 96 95 Oximetry 10/27/19 10/27/19 10/27/19 07:30 07:45 07:59 Temperature 98.3 F Pulse Rate 99 H 96 H Respiratory 18 19 Rate Blood Pressure 121/77 116/68 O2 Sat by Pulse 97 97 Oximetry 10/27/19 10/27/19 10/27/19 08:00 08:15 08:30 Temperature Pulse Rate 96 H 92 H 94 H Respiratory 19 26 H 14 Rate Blood Pressure 112/69 102/59 123/71 O2 Sat by Pulse 98 95 96 Oximetry 10/27/19 10/27/19 10/27/19 08:45 09:00 09:16 Temperature Pulse Rate 95 H 92 H 93 H Respiratory 27 H 14 16 Rate Blood Pressure 93/67 95/72 101/78 O2 Sat by Pulse 98 99 97 Oximetry 10/27/19 10/27/19 10/27/19 09:28 09:30 09:45 Temperature Pulse Rate 92 H 94 H Respiratory 17 20 Rate Blood Pressure 105/69 111/75 O2 Sat by Pulse 98 95 98 Oximetry 10/27/19 10/27/19 10/27/19 10:00 10:16 10:30 Temperature Pulse Rate 93 H 93 H 91 H Respiratory 21 20 20 Rate Blood Pressure 116/71 107/65 94/69 O2 Sat by Pulse 97 98 99 Oximetry 10/27/19 10/27/19 10/27/19 10:45 11:00 11:15 Temperature Pulse Rate 87 90 87 Respiratory 18 16 20 Rate Blood Pressure 108/72 101/72 103/76 O2 Sat by Pulse 97 96 97 Oximetry 10/27/19 10/27/19 10/27/19 11:30 11:45 12:00 Temperature 98.5 F Pulse Rate 89 89 87 Respiratory 19 17 17 Rate Blood Pressure 96/78 113/80 121/65 O2 Sat by Pulse 96 98 97 Oximetry 10/27/19 10/27/19 12:15 12:30 Temperature Pulse Rate 91 H 91 H Respiratory 20 16 Rate Blood Pressure 127/84 127/84 O2 Sat by Pulse 98 100 Oximetry General appearance: Present: no acute distress, well-nourished, other (Resting comfortably in bed.) - EENT Ears: bilateral: normal - Neck Neck: supple, normal ROM - Respiratory Respiratory effort: normal Respiratory: bilateral: CTA - Breasts Breasts: normal - Cardiovascular Rhythm: regular Heart Sounds: Present: S1 & S2. Absent: gallop, rub Extremities: pulses intact, No edema, normal color Extremity abnormal: other (Bandage left lower extremity from popliteal fossa up to the groin area. Echo also drain.) - Gastrointestinal General gastrointestinal: Present: soft, non-tender, non-distended, normal bowel sounds - Genitourinary Female genitourinary: normal - Integumentary Integumentary: clear, warm, dry - Musculoskeletal Musculoskeletal: 1, strength equal bilaterally - Neurologic Neurologic: moves all extremities - Psychiatric Psychiatric: other (Patient sleepy somewhat lethargic. But alert when awakened.) - Labs CBC & Chem 7: 10/27/19 08:18 10/27/19 08:18 Labs: Abnormal lab results 10/26/19 10/26/19 10/26/19 Range/Units 13:52 21:45 21:45 WBC 13.9 H (4.5-11.0) K/mm3 RDW 18.4 H (13.2-15.2) % Plt Count 131 L (140-440) K/mm3 Seg Neutrophils % 75.9 H (40.0-70.0) % Seg Neutrophils # 10.5 H (1.8-7.7) K/mm3 Heparin Anti-Xa Level 1.64 H 1.43 H (0.3-0.7) U.I./ml Sodium (137-145) mmol/L Potassium (3.6-5.0) mmol/L BUN (7-17) mg/dL Glucose (65-100) mg/dL Calcium (8.4-10.2) mg/dL 10/27/19 10/27/19 10/27/19 Range/Units 05:00 05:00 05:00 WBC 11.5 H (4.5-11.0) K/mm3 RDW 18.7 H (13.2-15.2) % Plt Count 123 L (140-440) K/mm3 Seg Neutrophils % 76.3 H (40.0-70.0) % Seg Neutrophils # 8.8 H (1.8-7.7) K/mm3 Heparin Anti-Xa Level 0.18 L (0.3-0.7) U.I./ml Sodium 133 L (137-145) mmol/L Potassium 3.2 L (3.6-5.0) mmol/L BUN 22 H (7-17) mg/dL Glucose 146 H (65-100) mg/dL Calcium 8.0 L (8.4-10.2) mg/dL 10/27/19 10/27/19 10/27/19 Range/Units 08:18 08:18 08:18 WBC 11.3 H (4.5-11.0) K/mm3 RDW 18.6 H (13.2-15.2) % Plt Count 112 L (140-440) K/mm3 Seg Neutrophils % 77.4 H (40.0-70.0) % Seg Neutrophils # 8.7 H (1.8-7.7) K/mm3 Heparin Anti-Xa Level < 0.10 L (0.3-0.7) U.I./ml Sodium (137-145) mmol/L Potassium 3.2 L (3.6-5.0) mmol/L BUN 21 H (7-17) mg/dL Glucose 121 H (65-100) mg/dL Calcium 8.2 L (8.4-10.2) mg/dL HEART Score - HEART Score Troponin: Troponin T 0.193 ng/mL (0.00-0.029) H* 10/25/19 17:40
--- NOTE | 2019-10-27 13:50 | Operative Report ---
Operative Report Operative Report: Date of Procedure: 10/27/2019 Pre-operative Diagnosis: Bilateral Pulmonary Emboli Status Post Thrombolysis Post-operative Diagnosis: Same Procedure(s): 1. Removal of Bilateral Pulmonary Artery Thrombolysis Catheters 2. Follow-Up Pulmonary Artery Angiogram 3. Inferior Venacavogram 4. Placement of [place] Inferior Vena Cava Filter 5. Radiologic Supervision with Interpretation 6. Monitored Moderate Sedation (Total Anesthesia Time: 25 Minutes) Surgeon: Anurag Wise M.D. Pc Technician: None Anesthesia: 1% Lidocaine/Monitored Moderate Sedation Total Anesthesia Time: 25 Minutes EBL: Minimal Counts: Correct Complications: None Condition: Stable Specimen: None Indication: The patient is a 59-year-old female who presented with bilateral pulmonary emboli and evidence of right heart strain as well as decreased oxygen saturations and hypotension. She underwent thrombolysis overnight and returns for removal of the thrombolysis catheters and IVC filter placement. She has been given the risk, benefits, and alternative procedures and consented to the procedure. Angiographic Findings: The right main pulmonary artery appeared to be free of thrombus as well as minimal thrombus within the segmental branches. The left main pulmonary artery appeared to be free of thrombus as well as minimal thrombus noted within the segmental branches. The inferior vena cava was free of thrombus and normal in caliber. The IVC filter was placed with the proximal tip at the top of the body of L2 without any evidence of significant tilt. Description of Procedure: The patient was brought to the Loss Prevention Specialist and laid in supine position. After a timeout was performed the patient's left groin and indwelling catheters and sheaths were prepped and draped in normal sterile fashion. Lidocaine was used to anesthetize the skin and soft tissue around the sheath and then scissors were used to cut the sutures securing the sheaths and catheters in place. The ultrasound catheters were removed from the thrombolysis catheters and the catheter in the right pulmonary artery was pulled back into the proximal artery and a diagnostic right pulmonary arteriogram was performed with the previously described findings. The catheter in the left pulmonary artery was pulled back into the proximal main pulmonary artery and the right pulmonary angiogram was performed the previously described findings. A 0.035 Bentson wire was then advanced to the catheter in the left main pulmonary artery and the catheter was removed leaving the wire in place. The catheter in the right main pulmonary artery was removed. A diagnostic inferior venacavogram was performed to a sheath injection from the left femoral vein with the previously described findings. The sheath containing the Bentson wire was then removed and the Stephany IVC filter delivery sheath was advanced, well above the body of L2, by Seldinger technique. The inner dilator was then removed and the filter was then inserted and positioned with the proximal apex at the top of the body of L2. The delivery sheath was then withdrawn deploying the filter in that position. The delivery sheath as well as the additional 6 Welsh sheath were then removed and manual pressure was held to achieve hemostasis. Once hemostasis was achieved a sterile pressure dressing was placed on the left groin and the patient was transported back to the intensive care unit in stable condition.
[2019-10-27] MEDS: APIXABAN 5 MG TAB PO SCH ×2 (14:35→21:01)
[2019-10-27] MEDS: AMITRIPTYLINE 25 MG TAB PO SCH (21:01)
[2019-10-27] MEDS: SODIUM CHLORIDE 0.9% 1000 ML 1,000 ML IV SCH (22:22)
[2019-10-28] MEDS: HYDROCORTISONE SOD SUCC 100 MG/2 ML VIAL IV SCH ×3 (05:20→22:15)
[2019-10-28] MEDS: SODIUM CHLORIDE 0.9% 1000 ML 1,000 ML IV SCH ×2 (05:23→13:12)
[2019-10-28 06:08] LABS: Blood Urea Nitrogen 18 mg/dL (7-17); Hemolysis Index 6
[2019-10-28] MEDS: HYDROcodone/ACETAMINOPHEN 10-325MG TAB PO PRN ×2 (06:08→16:19)
[2019-10-28 06:17] LABS: BUN/Creatinine Ratio 26
--- NOTE | 2019-10-28 10:31 | Progress Note ---
Assessment and Plan 59 y/o, obese female with severe RA and essentially wheelchair bound found to have bilateral PE, Hypoxemia and Hypotension. 1. Agree with oral anticoagulation. Likely will be lifelong 2. Can start to wean stress dose steroids back to home dose of prednisone 20 3. PT/OT given history of RA and lack of mobility at home 4. Stable for transfer to floor. Subjective Date of service: 10/28/19 Principal diagnosis: PE , sepsis Interval history: Catheters are out. Off pressors. BP stable. Objective Vital Signs - 12hr 10/27/19 10/27/19 10/27/19 22:30 22:45 23:00 Temperature Pulse Rate 96 H 96 H 97 H Respiratory 15 16 18 Rate Respiratory Rate [Bilateral Foot] Blood Pressure 112/75 115/81 112/40 O2 Sat by Pulse 95 98 98 Oximetry 10/27/19 10/27/19 10/27/19 23:15 23:26 23:30 Temperature 98.4 F Pulse Rate 99 H 97 H Respiratory 19 17 Rate Respiratory Rate [Bilateral Foot] Blood Pressure 108/52 112/40 O2 Sat by Pulse 98 98 Oximetry 10/27/19 10/28/19 10/28/19 23:45 00:00 00:15 Temperature Pulse Rate 95 H 93 H 95 H Respiratory 20 19 22 Rate Respiratory Rate [Bilateral Foot] Blood Pressure 94/49 110/59 O2 Sat by Pulse 97 98 98 Oximetry 10/28/19 10/28/19 10/28/19 00:30 00:45 01:00 Temperature Pulse Rate 92 H 90 90 Respiratory 18 18 19 Rate Respiratory Rate [Bilateral Foot] Blood Pressure 82/50 101/60 79/45 O2 Sat by Pulse 97 99 99 Oximetry 10/28/19 10/28/19 10/28/19 01:15 01:30 01:45 Temperature Pulse Rate 95 H 92 H 93 H Respiratory 18 16 20 Rate Respiratory Rate [Bilateral Foot] Blood Pressure 106/75 100/76 123/60 O2 Sat by Pulse 100 100 99 Oximetry 10/28/19 10/28/19 10/28/19 02:00 02:15 02:30 Temperature Pulse Rate 95 H 90 89 Respiratory 20 18 19 Rate Respiratory Rate [Bilateral Foot] Blood Pressure 112/71 116/65 117/66 O2 Sat by Pulse 100 99 100 Oximetry 10/28/19 10/28/19 10/28/19 02:45 03:00 03:15 Temperature Pulse Rate 79 94 H 96 H Respiratory 17 16 19 Rate Respiratory Rate [Bilateral Foot] Blood Pressure 105/73 115/64 112/67 O2 Sat by Pulse 100 96 100 Oximetry 10/28/19 10/28/19 10/28/19 03:28 03:31 03:45 Temperature 97.7 F Pulse Rate 95 H 94 H Respiratory 17 18 Rate Respiratory Rate [Bilateral Foot] Blood Pressure 102/70 113/65 O2 Sat by Pulse 99 100 Oximetry 10/28/19 10/28/19 10/28/19 04:00 04:15 04:30 Temperature Pulse Rate 93 H 88 95 H Respiratory 18 18 20 Rate Respiratory Rate [Bilateral Foot] Blood Pressure 115/61 97/57 98/67 O2 Sat by Pulse 98 100 100 Oximetry 10/28/19 10/28/19 10/28/19 04:45 05:00 05:15 Temperature Pulse Rate 94 H 90 87 Respiratory 19 17 18 Rate Respiratory Rate [Bilateral Foot] Blood Pressure 101/69 92/56 86/56 O2 Sat by Pulse 100 99 100 Oximetry 10/28/19 10/28/19 10/28/19 05:31 05:45 06:00 Temperature Pulse Rate 75 75 Respiratory 11 L 12 Rate Respiratory 20 Rate [Bilateral Foot] Blood Pressure 88/60 114/92 O2 Sat by Pulse 73 L 50 L Oximetry 10/28/19 10/28/19 10/28/19 06:01 06:08 09:03 Temperature Pulse Rate 77 Respiratory 16 16 Rate Respiratory Rate [Bilateral Foot] Blood Pressure 115/96 O2 Sat by Pulse 82 L 100 Oximetry Constitutional: no acute distress, alert, other (morbidly obese) Eyes: non-icteric ENT: oropharynx moist Neck: supple, other (large in circumference) Effort: normal Ascultation: Bilateral: diminished breath sounds Percussion: Bilateral: not dull Tactile fremitus: Bilateral: normal Cardiovascular: regular rate and rhythm Gastrointestinal: soft Extremities: no edema, pink and warm CBC and BMP: 10/27/19 08:18 10/28/19 05:40 ABG, PT/INR, D-dimer: ABG ABG pH 7.397 pH Units (7.350-7.450) 10/25/19 17:45 ABG pCO2 36.6 mm Hg 10/25/19 17:45 ABG pO2 71.5 mm Hg (80.0-90.0) L 10/25/19 17:45 ABG O2 Saturation 94.6 % (95.0-99.0) L 10/25/19 17:45 PT/INR, D-dimer PT 13.5 Sec. (12.2-14.9) 10/27/19 05:00 INR 1.02 (0.87-1.13) 10/27/19 05:00 D-Dimer > 76700 ng/mlDDU (0-234) H 10/25/19 17:40 D-Dimer > 33264 ng/mlDDU (0-234) H 10/25/19 17:40 Abnormal lab findings: Abnormal Labs 10/25/19 10/25/19 10/25/19 17:40 17:40 17:40 WBC 20.4 H RDW 18.9 H Plt Count Seg Neutrophils % Seg Neuts % (Manual) 73.0 H Seg Neutrophils # Seg Neutrophils # Man 14.9 H INR D-Dimer > 92098 H Heparin Anti-Xa Level ABG pO2 ABG O2 Saturation ABG Base Excess Oxyhemoglobin Sodium Potassium 2.2 L* Chloride 91.3 L BUN 22 H Creatinine 1.3 H Glucose 202 H Lactic Acid Calcium Lactate Dehydrogenase Troponin T 0.193 H* C-Reactive Protein HDL Cholesterol 85 H Ur Specific [place] 10/25/19 10/25/19 10/25/19 17:40 17:40 17:40 WBC RDW Plt Count Seg Neutrophils % Seg Neuts % (Manual) Seg Neutrophils # Seg Neutrophils # Man INR D-Dimer > 12108 H Heparin Anti-Xa Level ABG pO2 ABG O2 Saturation ABG Base Excess Oxyhemoglobin Sodium Potassium Chloride BUN Creatinine Glucose 205 H Lactic Acid 8.00 H* Calcium Lactate Dehydrogenase 322 H Troponin T C-Reactive Protein 2.50 H HDL Cholesterol Ur Specific [place] 10/25/19 10/25/19 10/25/19 17:45 20:09 20:09 WBC RDW Plt Count Seg Neutrophils % Seg Neuts % (Manual) Seg Neutrophils # Seg Neutrophils # Man INR D-Dimer Heparin Anti-Xa Level ABG pO2 71.5 L ABG O2 Saturation 94.6 L ABG Base Excess -2.3 L Oxyhemoglobin 91.6 L Sodium Potassium 3.0 L D Chloride BUN Creatinine Glucose Lactic Acid 3.40 H* Calcium Lactate Dehydrogenase Troponin T C-Reactive Protein HDL Cholesterol Ur Specific [place] 10/25/19 10/26/19 10/26/19 21:50 04:48 04:48 WBC RDW Plt Count 127 L Seg Neutrophils % Seg Neuts % (Manual) Seg Neutrophils # Seg Neutrophils # Man INR 1.15 H D-Dimer Heparin Anti-Xa Level 0.83 H ABG pO2 ABG O2 Saturation ABG Base Excess Oxyhemoglobin Sodium Potassium 2.8 L* Chloride 97.0 L BUN 23 H Creatinine Glucose 131 H Lactic Acid Calcium Lactate Dehydrogenase Troponin T C-Reactive Protein HDL Cholesterol Ur Specific [place] 10/26/19 10/26/19 10/26/19 11:37 13:52 21:45 WBC 13.9 H RDW 18.4 H Plt Count 131 L Seg Neutrophils % 75.9 H Seg Neuts % (Manual) Seg Neutrophils # 10.5 H Seg Neutrophils # Man INR D-Dimer Heparin Anti-Xa Level 1.64 H ABG pO2 ABG O2 Saturation ABG Base Excess Oxyhemoglobin Sodium Potassium Chloride BUN Creatinine Glucose Lactic Acid Calcium Lactate Dehydrogenase Troponin T C-Reactive Protein HDL Cholesterol Ur Specific [place] 1.043 H 10/26/19 10/27/19 10/27/19 21:45 05:00 05:00 WBC 11.5 H RDW 18.7 H Plt Count 123 L Seg Neutrophils % 76.3 H Seg Neuts % (Manual) Seg Neutrophils # 8.8 H Seg Neutrophils # Man INR D-Dimer Heparin Anti-Xa Level 1.43 H 0.18 L ABG pO2 ABG O2 Saturation ABG Base Excess Oxyhemoglobin Sodium Potassium Chloride BUN Creatinine Glucose Lactic Acid Calcium Lactate Dehydrogenase Troponin T C-Reactive Protein HDL Cholesterol Ur Specific [place] 10/27/19 10/27/19 10/27/19 05:00 08:18 08:18 WBC 11.3 H RDW 18.6 H Plt Count 112 L Seg Neutrophils % 77.4 H Seg Neuts % (Manual) Seg Neutrophils # 8.7 H Seg Neutrophils # Man INR D-Dimer Heparin Anti-Xa Level ABG pO2 ABG O2 Saturation ABG Base Excess Oxyhemoglobin Sodium 133 L Potassium 3.2 L 3.2 L Chloride BUN 22 H 21 H Creatinine Glucose 146 H 121 H Lactic Acid Calcium 8.0 L 8.2 L Lactate Dehydrogenase Troponin T C-Reactive Protein HDL Cholesterol Ur Specific [place] 10/27/19 10/28/19 08:18 05:40 WBC RDW Plt Count Seg Neutrophils % Seg Neuts % (Manual) Seg Neutrophils # Seg Neutrophils # Man INR D-Dimer Heparin Anti-Xa Level < 0.10 L ABG pO2 ABG O2 Saturation ABG Base Excess Oxyhemoglobin Sodium Potassium Chloride BUN 18 H Creatinine Glucose 120 H Lactic Acid Calcium 8.0 L Lactate Dehydrogenase Troponin T C-Reactive Protein HDL Cholesterol Ur Specific [place]
[2019-10-28] MEDS: POTASSIUM CHLORIDE ER 20 MEQ TAB PO SCH (11:16)
[2019-10-28] MEDS: APIXABAN 5 MG TAB PO SCH ×2 (11:17→22:07)
[2019-10-28] MEDS: GABAPENTIN 300 MG CAP PO SCH ×3 (11:17→22:06)
--- NOTE | 2019-10-28 11:23 | Progress Note ---
Assessment and Plan 31 min The high probability of a clinically significant, sudden or life threatening deterioration of the [] system(s) required my full and direct attention, intervention and personal management. The aggregate critical care time was [] minutes. This time is in addition to time spent performing reported procedures but includes the following: [x] Data Review and interpretation []x Patient assessment and monitoring of vital signs [x] Documentation [x] Medication orders and management - Patient Problems (1) Elevated troponin Current Visit: Yes Status: Acute Plan to address problem: Patient with elevated troponin possibly secondary to acute on chronic kidney disease. Patient has unremarkable cardiac isoenzymes. (2) Acute renal injury Current Visit: Yes Status: Acute Plan to address problem: Renal function has resolved secondary to vasomotor nephropathy (3) Bilateral pulmonary embolism Current Visit: Yes Status: Acute Plan to address problem: Patient status post EKOS lysis drain placed IVC placed vascular. Patient will require bilateral lower extremity Doppler upon discharge to rule out clots. Patient stable able to wean off pressors now transfer to the floor.. (4) Full code status Current Visit: Yes Status: Acute (5) Sepsis Current Visit: Yes Status: Acute Plan to address problem: No evidence of sepsis has been ruled out. (6) Hyperkalemia Current Visit: Yes Status: Acute Plan to address problem: Hypokalemia has been corrected. (7) Acute respiratory failure Current Visit: Yes Status: Acute Plan to address problem: Acute respiratory failure secondary to bilateral PE with heart strain. Patient placed on heparin drip today. Supportive care with oxygen via nasal cannula. Will require long dose anticoagulation. (8) COVID-19 ruled out Current Visit: Yes Status: Acute Subjective Date of service: 10/28/19 Principal diagnosis: PE , sepsis Interval history: Patient this a.m. much better much more alert active at baseline. Patient states pain is controlled and better. Lower extremity has decreased in size. Stable for transfer to floor. Objective - Constitutional Vitals: Vital Signs - 12hr 10/27/19 10/27/19 10/27/19 23:26 23:30 23:45 Temperature 98.4 F Pulse Rate 97 H 95 H Respiratory 17 20 Rate Respiratory Rate [Bilateral Foot] Blood Pressure 112/40 94/49 O2 Sat by Pulse 98 97 Oximetry 10/28/19 10/28/19 10/28/19 00:00 00:15 00:30 Temperature Pulse Rate 93 H 95 H 92 H Respiratory 19 22 18 Rate Respiratory Rate [Bilateral Foot] Blood Pressure 110/59 82/50 O2 Sat by Pulse 98 98 97 Oximetry 10/28/19 10/28/19 10/28/19 00:45 01:00 01:15 Temperature Pulse Rate 90 90 95 H Respiratory 18 19 18 Rate Respiratory Rate [Bilateral Foot] Blood Pressure 101/60 79/45 106/75 O2 Sat by Pulse 99 99 100 Oximetry 10/28/19 10/28/19 10/28/19 01:30 01:45 02:00 Temperature Pulse Rate 92 H 93 H 95 H Respiratory 16 20 20 Rate Respiratory Rate [Bilateral Foot] Blood Pressure 100/76 123/60 112/71 O2 Sat by Pulse 100 99 100 Oximetry 10/28/19 10/28/19 10/28/19 02:15 02:30 02:45 Temperature Pulse Rate 90 89 79 Respiratory 18 19 17 Rate Respiratory Rate [Bilateral Foot] Blood Pressure 116/65 117/66 105/73 O2 Sat by Pulse 99 100 100 Oximetry 10/28/19 10/28/19 10/28/19 03:00 03:15 03:28 Temperature 97.7 F Pulse Rate 94 H 96 H Respiratory 16 19 Rate Respiratory Rate [Bilateral Foot] Blood Pressure 115/64 112/67 O2 Sat by Pulse 96 100 Oximetry 10/28/19 10/28/19 10/28/19 03:31 03:45 04:00 Temperature Pulse Rate 95 H 94 H 93 H Respiratory 17 18 18 Rate Respiratory Rate [Bilateral Foot] Blood Pressure 102/70 113/65 115/61 O2 Sat by Pulse 99 100 98 Oximetry 10/28/19 10/28/19 10/28/19 04:15 04:30 04:45 Temperature Pulse Rate 88 95 H 94 H Respiratory 18 20 19 Rate Respiratory Rate [Bilateral Foot] Blood Pressure 97/57 98/67 101/69 O2 Sat by Pulse 100 100 100 Oximetry 10/28/19 10/28/19 10/28/19 05:00 05:15 05:31 Temperature Pulse Rate 90 87 75 Respiratory 17 18 11 L Rate Respiratory Rate [Bilateral Foot] Blood Pressure 92/56 86/56 88/60 O2 Sat by Pulse 99 100 73 L Oximetry 10/28/19 10/28/19 10/28/19 05:45 06:00 06:01 Temperature Pulse Rate 75 77 Respiratory 12 16 Rate Respiratory 20 Rate [Bilateral Foot] Blood Pressure 114/92 115/96 O2 Sat by Pulse 50 L 82 L Oximetry 10/28/19 10/28/19 10/28/19 06:08 06:15 06:30 Temperature Pulse Rate 83 90 Respiratory 16 13 11 L Rate Respiratory Rate [Bilateral Foot] Blood Pressure 117/74 123/84 O2 Sat by Pulse 60 L 79 L Oximetry 10/28/19 10/28/19 10/28/19 06:45 07:01 07:15 Temperature Pulse Rate 97 H 88 94 H Respiratory 18 15 19 Rate Respiratory Rate [Bilateral Foot] Blood Pressure 123/84 117/94 117/94 O2 Sat by Pulse 87 67 L Oximetry 10/28/19 10/28/19 10/28/19 07:31 07:45 08:01 Temperature Pulse Rate 96 H 97 H 96 H Respiratory 12 16 12 Rate Respiratory Rate [Bilateral Foot] Blood Pressure 117/94 135/110 128/87 O2 Sat by Pulse 93 61 L 98 Oximetry 10/28/19 10/28/19 10/28/19 08:15 08:31 08:45 Temperature Pulse Rate 92 H 94 H 98 H Respiratory 15 12 11 L Rate Respiratory Rate [Bilateral Foot] Blood Pressure 115/72 112/79 124/85 O2 Sat by Pulse 97 100 90 Oximetry 10/28/19 10/28/19 10/28/19 09:01 09:03 09:15 Temperature Pulse Rate 94 H 96 H Respiratory 13 17 Rate Respiratory Rate [Bilateral Foot] Blood Pressure 124/85 124/85 O2 Sat by Pulse 98 100 92 Oximetry 10/28/19 10/28/19 10/28/19 09:31 09:45 10:00 Temperature Pulse Rate 94 H 95 H 99 H Respiratory 24 12 13 Rate Respiratory Rate [Bilateral Foot] Blood Pressure 118/74 111/75 121/76 O2 Sat by Pulse 82 L 97 100 Oximetry 10/28/19 10/28/19 10/28/19 10:15 10:30 10:45 Temperature Pulse Rate 100 H 97 H 95 H Respiratory 15 11 L 15 Rate Respiratory Rate [Bilateral Foot] Blood Pressure 112/69 114/75 128/77 O2 Sat by Pulse 100 98 100 Oximetry 10/28/19 11:00 Temperature Pulse Rate 99 H Respiratory 16 Rate Respiratory Rate [Bilateral Foot] Blood Pressure 130/80 O2 Sat by Pulse 99 Oximetry General appearance: Present: no acute distress, well-nourished - EENT Eyes: PERRL, EOM intact ENT: hearing intact, clear oral mucosa Ears: bilateral: normal - Neck Neck: supple, normal ROM - Respiratory Respiratory effort: normal Respiratory: bilateral: CTA, diminished - Breasts Breasts: normal - Cardiovascular Rhythm: regular Heart Sounds: Present: S1 & S2. Absent: gallop, rub Extremities: pulses intact, No edema, normal color, Full ROM Extremity abnormal: other (Severe rheumatoid nodules. Ulnar deviation.) - Gastrointestinal General gastrointestinal: Present: soft, non-tender, non-distended, normal bowel sounds - Genitourinary Female genitourinary: normal - Integumentary Integumentary: clear, warm, dry - Musculoskeletal Musculoskeletal: 1, strength equal bilaterally - Neurologic Neurologic: moves all extremities - Psychiatric Psychiatric: memory intact, appropriate mood/affect, intact judgment & insight - Labs CBC & Chem 7: 10/27/19 08:18 10/28/19 05:40 Labs: Abnormal lab results 10/28/19 Range/Units 05:40 BUN 18 H (7-17) mg/dL Glucose 120 H (65-100) mg/dL Calcium 8.0 L (8.4-10.2) mg/dL HEART Score - HEART Score Troponin: Troponin T 0.193 ng/mL (0.00-0.029) H* 10/25/19 17:40
[2019-10-28] MEDS: HYDROmorphone 1 MG/1 ML INJ IV PRN (13:08)
--- NOTE | 2019-10-28 13:45 | Progress Note ---
Assessment and Plan Patient is doing well after bilateral pulmonary artery thrombolysis Minimum of 6 months oral anticoagulation Okay to discharge from a vascular surgery standpoint Follow up with me in the office in 2 weeks after discharge Subjective Date of service: 10/28/19 Principal diagnosis: PE , sepsis Interval history: Patient states her breathing feels much better. Dopamine was weaned off overnight. No complaints. Objective - Constitutional Vitals: Vital Signs - 12hr 10/28/19 10/28/19 10/28/19 01:45 02:00 02:15 Temperature Pulse Rate 93 H 95 H 90 Pulse Rate [ Left Dorsalis Pedis] Pulse Rate [ Left Radial] Pulse Rate [ Right Dorsalis Pedis] Pulse Rate [ Right Radial] Respiratory 20 20 18 Rate Respiratory Rate [Bilateral Foot] Blood Pressure 123/60 112/71 116/65 O2 Sat by Pulse 99 100 99 Oximetry 10/28/19 10/28/19 10/28/19 02:30 02:45 03:00 Temperature Pulse Rate 89 79 94 H Pulse Rate [ Left Dorsalis Pedis] Pulse Rate [ Left Radial] Pulse Rate [ Right Dorsalis Pedis] Pulse Rate [ Right Radial] Respiratory 19 17 16 Rate Respiratory Rate [Bilateral Foot] Blood Pressure 117/66 105/73 115/64 O2 Sat by Pulse 100 100 96 Oximetry 10/28/19 10/28/19 10/28/19 03:15 03:28 03:31 Temperature 97.7 F Pulse Rate 96 H 95 H Pulse Rate [ Left Dorsalis Pedis] Pulse Rate [ Left Radial] Pulse Rate [ Right Dorsalis Pedis] Pulse Rate [ Right Radial] Respiratory 19 17 Rate Respiratory Rate [Bilateral Foot] Blood Pressure 112/67 102/70 O2 Sat by Pulse 100 99 Oximetry 10/28/19 10/28/19 10/28/19 03:45 04:00 04:15 Temperature Pulse Rate 94 H 93 H 88 Pulse Rate [ Left Dorsalis Pedis] Pulse Rate [ Left Radial] Pulse Rate [ Right Dorsalis Pedis] Pulse Rate [ Right Radial] Respiratory 18 18 18 Rate Respiratory Rate [Bilateral Foot] Blood Pressure 113/65 115/61 97/57 O2 Sat by Pulse 100 98 100 Oximetry 10/28/19 10/28/19 10/28/19 04:30 04:45 05:00 Temperature Pulse Rate 95 H 94 H 90 Pulse Rate [ Left Dorsalis Pedis] Pulse Rate [ Left Radial] Pulse Rate [ Right Dorsalis Pedis] Pulse Rate [ Right Radial] Respiratory 20 19 17 Rate Respiratory Rate [Bilateral Foot] Blood Pressure 98/67 101/69 92/56 O2 Sat by Pulse 100 100 99 Oximetry 10/28/19 10/28/19 10/28/19 05:15 05:31 05:45 Temperature Pulse Rate 87 75 75 Pulse Rate [ Left Dorsalis Pedis] Pulse Rate [ Left Radial] Pulse Rate [ Right Dorsalis Pedis] Pulse Rate [ Right Radial] Respiratory 18 11 L 12 Rate Respiratory Rate [Bilateral Foot] Blood Pressure 86/56 88/60 114/92 O2 Sat by Pulse 100 73 L 50 L Oximetry 10/28/19 10/28/19 10/28/19 06:00 06:01 06:08 Temperature Pulse Rate 77 Pulse Rate [ Left Dorsalis Pedis] Pulse Rate [ Left Radial] Pulse Rate [ Right Dorsalis Pedis] Pulse Rate [ Right Radial] Respiratory 16 16 Rate Respiratory 20 Rate [Bilateral Foot] Blood Pressure 115/96 O2 Sat by Pulse 82 L Oximetry 10/28/19 10/28/19 10/28/19 06:15 06:30 06:45 Temperature Pulse Rate 83 90 97 H Pulse Rate [ Left Dorsalis Pedis] Pulse Rate [ Left Radial] Pulse Rate [ Right Dorsalis Pedis] Pulse Rate [ Right Radial] Respiratory 13 11 L 18 Rate Respiratory Rate [Bilateral Foot] Blood Pressure 117/74 123/84 123/84 O2 Sat by Pulse 60 L 79 L 87 Oximetry 10/28/19 10/28/19 10/28/19 07:01 07:15 07:31 Temperature Pulse Rate 88 94 H 96 H Pulse Rate [ Left Dorsalis Pedis] Pulse Rate [ Left Radial] Pulse Rate [ Right Dorsalis Pedis] Pulse Rate [ Right Radial] Respiratory 15 19 12 Rate Respiratory Rate [Bilateral Foot] Blood Pressure 117/94 117/94 117/94 O2 Sat by Pulse 67 L 93 Oximetry 10/28/19 10/28/19 10/28/19 07:45 08:01 08:15 Temperature Pulse Rate 97 H 96 H 92 H Pulse Rate [ Left Dorsalis Pedis] Pulse Rate [ Left Radial] Pulse Rate [ Right Dorsalis Pedis] Pulse Rate [ Right Radial] Respiratory 16 12 15 Rate Respiratory Rate [Bilateral Foot] Blood Pressure 135/110 128/87 115/72 O2 Sat by Pulse 61 L 98 97 Oximetry 10/28/19 10/28/19 10/28/19 08:31 08:45 09:00 Temperature Pulse Rate 94 H 98 H Pulse Rate [ 99 H Left Dorsalis Pedis] Pulse Rate [ 99 H Left Radial] Pulse Rate [ 99 H Right Dorsalis Pedis] Pulse Rate [ 99 H Right Radial] Respiratory 12 11 L 16 Rate Respiratory Rate [Bilateral Foot] Blood Pressure 112/79 124/85 O2 Sat by Pulse 100 90 99 Oximetry 10/28/19 10/28/19 10/28/19 09:01 09:03 09:15 Temperature Pulse Rate 94 H 96 H Pulse Rate [ Left Dorsalis Pedis] Pulse Rate [ Left Radial] Pulse Rate [ Right Dorsalis Pedis] Pulse Rate [ Right Radial] Respiratory 13 17 Rate Respiratory Rate [Bilateral Foot] Blood Pressure 124/85 124/85 O2 Sat by Pulse 98 100 92 Oximetry 10/28/19 10/28/19 10/28/19 09:31 09:45 10:00 Temperature Pulse Rate 94 H 95 H 99 H Pulse Rate [ Left Dorsalis Pedis] Pulse Rate [ Left Radial] Pulse Rate [ Right Dorsalis Pedis] Pulse Rate [ Right Radial] Respiratory 24 12 13 Rate Respiratory Rate [Bilateral Foot] Blood Pressure 118/74 111/75 121/76 O2 Sat by Pulse 82 L 97 100 Oximetry 10/28/19 10/28/19 10/28/19 10:15 10:30 10:45 Temperature Pulse Rate 100 H 97 H 95 H Pulse Rate [ Left Dorsalis Pedis] Pulse Rate [ Left Radial] Pulse Rate [ Right Dorsalis Pedis] Pulse Rate [ Right Radial] Respiratory 15 11 L 15 Rate Respiratory Rate [Bilateral Foot] Blood Pressure 112/69 114/75 128/77 O2 Sat by Pulse 100 98 100 Oximetry 10/28/19 10/28/19 10/28/19 11:00 11:15 11:31 Temperature Pulse Rate 99 H 97 H 94 H Pulse Rate [ Left Dorsalis Pedis] Pulse Rate [ Left Radial] Pulse Rate [ Right Dorsalis Pedis] Pulse Rate [ Right Radial] Respiratory 16 20 17 Rate Respiratory Rate [Bilateral Foot] Blood Pressure 130/80 122/86 125/104 O2 Sat by Pulse 99 99 87 Oximetry 10/28/19 10/28/19 10/28/19 11:45 12:00 12:15 Temperature Pulse Rate 90 97 H 96 H Pulse Rate [ Left Dorsalis Pedis] Pulse Rate [ Left Radial] Pulse Rate [ Right Dorsalis Pedis] Pulse Rate [ Right Radial] Respiratory 19 14 13 Rate Respiratory Rate [Bilateral Foot] Blood Pressure 138/113 139/77 122/75 O2 Sat by Pulse 87 60 L 61 L Oximetry 10/28/19 10/28/19 10/28/19 12:30 12:45 13:00 Temperature Pulse Rate 97 H 97 H Pulse Rate [ 102 H Left Dorsalis Pedis] Pulse Rate [ 102 H Left Radial] Pulse Rate [ 102 H Right Dorsalis Pedis] Pulse Rate [ 102 H Right Radial] Respiratory 16 15 19 Rate Respiratory Rate [Bilateral Foot] Blood Pressure 117/91 106/72 O2 Sat by Pulse 70 L 96 100 Oximetry 10/28/19 10/28/19 13:01 13:15 Temperature Pulse Rate 102 H 100 H Pulse Rate [ Left Dorsalis Pedis] Pulse Rate [ Left Radial] Pulse Rate [ Right Dorsalis Pedis] Pulse Rate [ Right Radial] Respiratory 19 14 Rate Respiratory Rate [Bilateral Foot] Blood Pressure 123/81 133/85 O2 Sat by Pulse 100 80 L Oximetry General appearance: Present: no acute distress - Respiratory Respiratory effort: normal - Breasts Breasts: deferred Extremities: no ischemia, abnormal (Left groin access site is without hematoma) - Gastrointestinal General gastrointestinal: Present: soft - Genitourinary Female genitourinary: deferred - Labs CBC & Chem 7: 10/27/19 08:18 10/28/19 05:40 Labs: Abnormal lab results 10/28/19 Range/Units 05:40 BUN 18 H (7-17) mg/dL Glucose 120 H (65-100) mg/dL Calcium 8.0 L (8.4-10.2) mg/dL Medications & Allergies - Medications Allergies/Adverse Reactions: Allergies diclofenac [From Voltaren] Allergy (Verified 10/25/19 18:02) Hives Home Medications: Home Medications Medication Instructions Recorded Confirmed Last Taken Type Amitriptyline [Elavil] 25 mg PO QHS 10/26/19 10/26/19 Unknown History Cyclobenzaprine HCl [Flexeril 5 MG 5 mg PO TID 10/26/19 10/26/19 Unknown History TAB] Furosemide [Lasix TAB] 40 mg PO QDAY 10/26/19 10/26/19 Unknown History Gabapentin 300 mg PO TID 10/26/19 10/26/19 Unknown History Ibuprofen [Motrin] 800 mg PO Q8HR PRN 10/26/19 10/26/19 Unknown History predniSONE [Deltasone] 20 mg PO QDAY 10/26/19 10/26/19 Unknown History Active Medications: Generic Name Dose Route Start Last Admin Trade Name Freq PRN Reason Stop Dose Admin Acetaminophen 650 mg 10/25/19 23:26 Tylenol PO Q6H PRN Pain, Mild (1-3) Acetaminophen/Hydrocodone Bitart 1 each 10/26/19 10:16 10/28/19 06:08 [place] 10/325 PO 1 each Q8H PRN Administration Pain, Moderate (4-6) Amitriptyline HCl 25 mg 10/26/19 22:00 10/27/19 21:01 Elavil PO 25 mg QHS KATEY Administration Apixaban 10 mg 10/27/19 14:00 10/28/19 11:17 Eliquis PO 02/01/20 23:59 10 mg Q12HR KATEY Administration Protocol Apixaban 5 mg 02/02/20 10:00 Eliquis PO 05/02/20 09:59 Q12HR KATEY Protocol Gabapentin 300 mg 10/26/19 14:00 10/28/19 13:08 Gabapentin PO 300 mg TID KATEY Administration Hydrocortisone Sodium Succinate 100 mg 10/27/19 08:00 10/28/19 13:09 Solu-Cortef IV 100 mg Q8HR KAETY Administration Hydromorphone HCl 0.25 mg 10/25/19 23:26 10/28/19 13:08 Dilaudid IV 0.25 mg Q4H PRN Administration Pain, Moderate (4-6) Sodium Chloride 1,000 mls @ 125 mls/hr 10/25/19 23:30 10/28/19 13:12 Nacl 0.9% 1000 Ml IV 125 mls/hr DIRECT KATEY Administration Dopamine HCl/Dextrose 800 mg in 250 mls @ 3.742 mls/hr 10/27/19 03:06 10/27/19 14:30 Intropin Drip 800 Mg/D5w 250 Ml IV 0 mcg/kg/min TITR KATEY 0 mls/hr Titration Protocol 2 MCG/KG/MIN Magnesium Hydroxide 30 ml 10/25/19 23:26 Milk Of Magnesia PO Q4H PRN Constipation Potassium Chloride 40 meq 10/26/19 20:00 10/28/19 11:16 K-Dur PO 40 meq QDAY KATEY Administration Sodium Chloride 10 ml 10/26/19 10:00 10/28/19 11:16 Sodium Chloride Flush Syringe 10 Ml IV 10 ml BID KATEY Administration Sodium Chloride 10 ml 10/25/19 23:26 Sodium Chloride Flush Syringe 10 Ml IV PRN PRN LINE FLUSH HEART Score - HEART Score Troponin: Troponin T 0.193 ng/mL (0.00-0.029) H* 10/25/19 17:40
[2019-10-28] MEDS: AMITRIPTYLINE 25 MG TAB PO SCH (22:07)
[2019-10-29] MEDS: HYDROcodone/ACETAMINOPHEN 10-325MG TAB PO PRN ×2 (00:25→14:03)
[2019-10-29] MEDS: HYDROCORTISONE SOD SUCC 100 MG/2 ML VIAL IV SCH (05:35)
[2019-10-29 08:48] LABS: Blood Urea Nitrogen 16 mg/dL (7-17); Calcium 8.1 mg/dL (8.4-10.2); Hemolysis Index 11
[2019-10-29 08:50] LABS: BUN/Creatinine Ratio 27
[2019-10-29] MEDS: APIXABAN 5 MG TAB PO SCH (09:14)
[2019-10-29] MEDS: GABAPENTIN 300 MG CAP PO SCH ×2 (09:14→14:03)
--- NOTE | 2019-10-29 10:01 | Progress Note ---
Assessment and Plan 59 y/o, obese female with severe RA and essentially wheelchair bound found to have bilateral PE, Hypoxemia and Hypotension. 1. Agree with oral anticoagulation. Likely will be lifelong 2. Can start to wean stress dose steroids back to home dose of prednisone 20 3. PT/OT given history of RA and lack of mobility at home 4. Will follow Subjective Date of service: 10/29/19 Principal diagnosis: PE , sepsis Interval history: No acute events. STable on floor. Objective Vital Signs - 12hr 10/28/19 10/28/19 10/28/19 22:00 23:32 23:59 Temperature 98.3 F Pulse Rate 95 H 93 H 87 Respiratory 20 Rate Blood Pressure 115/55 O2 Sat by Pulse 100 100 Oximetry 10/29/19 10/29/19 10/29/19 04:45 06:00 07:34 Temperature 97.2 F L 97.9 F Pulse Rate 87 89 Respiratory 20 18 Rate Blood Pressure 111/84 116/69 O2 Sat by Pulse 97 96 Oximetry 10/29/19 08:47 Temperature Pulse Rate Respiratory Rate Blood Pressure O2 Sat by Pulse 96 Oximetry Constitutional: no acute distress, alert, other (morbidly obese) Eyes: non-icteric ENT: oropharynx moist Neck: supple, other (large in circumference) Effort: normal Ascultation: Bilateral: diminished breath sounds Percussion: Bilateral: not dull Tactile fremitus: Bilateral: normal Cardiovascular: regular rate and rhythm Gastrointestinal: soft Extremities: no edema, pink and warm CBC and BMP: 10/27/19 08:18 10/29/19 07:18 ABG, PT/INR, D-dimer: ABG ABG pH 7.397 pH Units (7.350-7.450) 10/25/19 17:45 ABG pCO2 36.6 mm Hg 10/25/19 17:45 ABG pO2 71.5 mm Hg (80.0-90.0) L 10/25/19 17:45 ABG O2 Saturation 94.6 % (95.0-99.0) L 10/25/19 17:45 PT/INR, D-dimer PT 13.5 Sec. (12.2-14.9) 10/27/19 05:00 INR 1.02 (0.87-1.13) 10/27/19 05:00 D-Dimer > 70396 ng/mlDDU (0-234) H 10/25/19 17:40 D-Dimer > 37846 ng/mlDDU (0-234) H 10/25/19 17:40 Abnormal lab findings: Abnormal Labs 10/25/19 10/25/19 10/25/19 17:40 17:40 17:40 WBC 20.4 H RDW 18.9 H Plt Count Seg Neutrophils % Seg Neuts % (Manual) 73.0 H Seg Neutrophils # Seg Neutrophils # Man 14.9 H INR D-Dimer > 99452 H Heparin Anti-Xa Level ABG pO2 ABG O2 Saturation ABG Base Excess Oxyhemoglobin Sodium Potassium 2.2 L* Chloride 91.3 L BUN 22 H Creatinine 1.3 H Glucose 202 H Lactic Acid Calcium Lactate Dehydrogenase Troponin T 0.193 H* C-Reactive Protein HDL Cholesterol 85 H Ur Specific [place] 10/25/19 10/25/19 10/25/19 17:40 17:40 17:40 WBC RDW Plt Count Seg Neutrophils % Seg Neuts % (Manual) Seg Neutrophils # Seg Neutrophils # Man INR D-Dimer > 13113 H Heparin Anti-Xa Level ABG pO2 ABG O2 Saturation ABG Base Excess Oxyhemoglobin Sodium Potassium Chloride BUN Creatinine Glucose 205 H Lactic Acid 8.00 H* Calcium Lactate Dehydrogenase 322 H Troponin T C-Reactive Protein 2.50 H HDL Cholesterol Ur Specific [place] 10/25/19 10/25/19 10/25/19 17:45 20:09 20:09 WBC RDW Plt Count Seg Neutrophils % Seg Neuts % (Manual) Seg Neutrophils # Seg Neutrophils # Man INR D-Dimer Heparin Anti-Xa Level ABG pO2 71.5 L ABG O2 Saturation 94.6 L ABG Base Excess -2.3 L Oxyhemoglobin 91.6 L Sodium Potassium 3.0 L D Chloride BUN Creatinine Glucose Lactic Acid 3.40 H* Calcium Lactate Dehydrogenase Troponin T C-Reactive Protein HDL Cholesterol Ur Specific [place] 10/25/19 10/26/19 10/26/19 21:50 04:48 04:48 WBC RDW Plt Count 127 L Seg Neutrophils % Seg Neuts % (Manual) Seg Neutrophils # Seg Neutrophils # Man INR 1.15 H D-Dimer Heparin Anti-Xa Level 0.83 H ABG pO2 ABG O2 Saturation ABG Base Excess Oxyhemoglobin Sodium Potassium 2.8 L* Chloride 97.0 L BUN 23 H Creatinine Glucose 131 H Lactic Acid Calcium Lactate Dehydrogenase Troponin T C-Reactive Protein HDL Cholesterol Ur Specific [place] 10/26/19 10/26/19 10/26/19 11:37 13:52 21:45 WBC 13.9 H RDW 18.4 H Plt Count 131 L Seg Neutrophils % 75.9 H Seg Neuts % (Manual) Seg Neutrophils # 10.5 H Seg Neutrophils # Man INR D-Dimer Heparin Anti-Xa Level 1.64 H ABG pO2 ABG O2 Saturation ABG Base Excess Oxyhemoglobin Sodium Potassium Chloride BUN Creatinine Glucose Lactic Acid Calcium Lactate Dehydrogenase Troponin T C-Reactive Protein HDL Cholesterol Ur Specific [place] 1.043 H 10/26/19 10/27/19 10/27/19 21:45 05:00 05:00 WBC 11.5 H RDW 18.7 H Plt Count 123 L Seg Neutrophils % 76.3 H Seg Neuts % (Manual) Seg Neutrophils # 8.8 H Seg Neutrophils # Man INR D-Dimer Heparin Anti-Xa Level 1.43 H 0.18 L ABG pO2 ABG O2 Saturation ABG Base Excess Oxyhemoglobin Sodium Potassium Chloride BUN Creatinine Glucose Lactic Acid Calcium Lactate Dehydrogenase Troponin T C-Reactive Protein HDL Cholesterol Ur Specific [place] 10/27/19 10/27/19 10/27/19 05:00 08:18 08:18 WBC 11.3 H RDW 18.6 H Plt Count 112 L Seg Neutrophils % 77.4 H Seg Neuts % (Manual) Seg Neutrophils # 8.7 H Seg Neutrophils # Man INR D-Dimer Heparin Anti-Xa Level ABG pO2 ABG O2 Saturation ABG Base Excess Oxyhemoglobin Sodium 133 L Potassium 3.2 L 3.2 L Chloride BUN 22 H 21 H Creatinine Glucose 146 H 121 H Lactic Acid Calcium 8.0 L 8.2 L Lactate Dehydrogenase Troponin T C-Reactive Protein HDL Cholesterol Ur Specific [place] 10/27/19 10/28/19 10/29/19 08:18 05:40 07:18 WBC RDW Plt Count Seg Neutrophils % Seg Neuts % (Manual) Seg Neutrophils # Seg Neutrophils # Man INR D-Dimer Heparin Anti-Xa Level < 0.10 L ABG pO2 ABG O2 Saturation ABG Base Excess Oxyhemoglobin Sodium Potassium 5.1 H D Chloride BUN 18 H Creatinine Glucose 120 H 114 H Lactic Acid Calcium 8.0 L 8.1 L Lactate Dehydrogenase Troponin T C-Reactive Protein HDL Cholesterol Ur Specific [place]
--- NOTE | 2019-10-29 10:29 | Discharge Summary ---
Providers - Providers Date of Admission: 10/25/19 23:12 Date of discharge: 10/29/19 Attending physician: NADIYA WELSH 10/25/19 23:26 Consult to Dietitian/Nutrition [CONS] Routine Physician Instructions: Reason For Exam: Reason for Consult: Diet education Consult to Physician [CONS] Routine Comment: notified of consult for Dr. Ha @ 0056 Consulting Provider: ROSHAN HA Physician Instructions: Reason For Exam: TREE.PULMONARY EMBOLISM, SEPSIS 10/26/19 03:41 Consult to Physician [CONS] Routine Comment: called office/ wendi Consulting Provider: DEANN TELLEZ Physician Instructions: Reason For Exam: Sepsis r/o Covid 19 10/26/19 11:59 Consult to Physician [CONS] Urgent Comment: Consulting Provider: NADIYA ZHU Physician Instructions: I have spoken with him already Reason For Exam: Pulmonary Embolism with hypotension Primary care physician: OPTOELECTRONIC TECHNICIAN Hospitalization Condition: Good Pertinent studies: ient is a 59-year-old female who presented with bilateral pulmonary emboli and evidence of right heart strain as well as decreased oxygen saturations and hypotension. She underwent thrombolysis overnight and returns for removal of the thrombolysis catheters and IVC filter placement. She has been given the risk, benefits, and alternative procedures and consented to the procedure. Bilateral lower extremity Doppler complete Hospital course: Patient 59-year-old female with severe rheumatoid arthritis bed to chair bound presents with bilateral pulmonary embolism. Patient had significant hypotension and shortness of breath. Patient was placed on dopamine for hypotension was ruled out for coronavirus and ruled out for sepsis. Given patient's hemodynamic instability vascular consult was obtained and patient underwent pulmonary artery thrombolyzes on 913. Disposition: TO HOME OR SELFCARE - Discharge Diagnoses (1) Elevated troponin Status: Acute Comment: Was secondary to acute vasomotor nephropathy resolved. (2) Acute renal injury Status: Acute Comment: Secondary to vasomotor nephropathy has resolved with gentle IV volume hydration. (3) Bilateral pulmonary embolism Status: Acute Comment: Bilateral pleural effusions could have been secondary to sedentary lifestyle. Patient will require outpatient work-up for hypercoagulable state. Patient also received pulmonary artery thrombolytics on 913. Will require 6 months of Xarelto. Patient will be discharged follow-up with vascular surgery in 2 weeks. (4) Full code status Status: Acute (5) Sepsis Status: Acute Comment: This patient hypotensive tachycardic diagnosed this SIRS no evidence of sepsis. (6) Hyperkalemia Status: Acute Comment: Present on admission corrected orally. (7) Acute respiratory failure Status: Acute Comment: Secondary to bilateral pulmonary embolus. Tolerated thrombolyzes well. Clinically stable hemodynamically stable now. R (8) COVID-19 ruled out Status: Acute Core Measure Documentation - Palliative Care Palliative Care/ Comfort Measures: Not Applicable - Core Measures Any of the following diagnoses?: none - VTE Discharge Requirements Deep Vein Thrombosis/Pulmonary Embolism Present on Admission: Yes Has pt received <5 days of overlap therapy or INR<2.0: No (pt on xarelto) Anticoagulant overlap therapy prescribed at discharge: Yes Exam - Constitutional Vitals: Temp Pulse Resp BP Pulse Ox 97.9 F 89 18 116/69 98 10/29/19 07:34 10/29/19 06:00 10/29/19 10:00 10/29/19 07:34 10/29/19 10:00 General appearance: Present: no acute distress, well-nourished - EENT Eyes: Present: PERRL ENT: hearing intact, clear oral mucosa - Neck Neck: Present: supple, normal ROM - Respiratory Respiratory effort: normal Respiratory: bilateral: CTA - Cardiovascular Heart Sounds: Present: S1 & S2. Absent: rub, click - Extremities Extremities: pulses symmetrical, No edema Extremity abnormal: other (severe RA wth ulnar deviation) Peripheral Pulses: within normal limits - Abdominal General gastrointestinal: Present: soft, non-tender, non-distended, normal bowel sounds Female genitourinary: Present: normal - Integumentary Integumentary: Present: clear, warm, dry - Musculoskeletal Musculoskeletal: gait normal, strength equal bilaterally - Psychiatric Psychiatric: appropriate mood/affect, intact judgment & insight - Neurologic Neurologic: CNII-XII intact, moves all extremities Plan Activity: up only with assistance Weight Bearing Status: Weight Bear as Tolerated Diet: low fat, low carbohydrate Special Instructions: no heavy lifting, home health RN, other (f/u vascular 2 weeks) Follow up with: PRIMARY CARE,MD [Primary Care Provider] - 3-5 Days Prescriptions: Apixaban [Eliquis] 5 mg PO Q12HR #60 tablet Apixaban [Eliquis] 10 mg PO Q12HR 5 Days #10 tablet Gabapentin 300 mg PO TID #90 cap HYDROcodone/APAP 10-325 [[place] 10-325 mg TAB] 1 each PO Q8H PRN #14 tablet PRN Reason: Pain, Moderate (4-6)
--- NOTE | 2019-10-29 12:00 | Vascular Lab Report ---
DUPLEX DOPPLER LOWER EXTREMITY VEINS, BILATERAL INDICATION / CLINICAL INFORMATION: PE. TECHNIQUE: Duplex doppler imaging was performed through the veins of both lower extremities using venous fahad lauro and other maneuvers. COMPARISON: None available. FINDINGS: RIGHT COMMON FEMORAL VEIN: Negative. RIGHT FEMORAL VEIN: Negative. RIGHT POPLITEAL VEIN: Negative. RIGHT CALF VEINS: Negative. LEFT COMMON FEMORAL VEIN: Negative. LEFT FEMORAL VEIN: Partially occlusive thrombosis in the left midportion extending distally. LEFT POPLITEAL VEIN: Partially occlusive thrombosis. LEFT CALF VEINS: Occlusive thrombosis of the peroneal veins. ADDITIONAL FINDINGS: None. IMPRESSION: 1. Partially occlusive DVT, as above. IMPORTANT FINDING: Time of Communication (CREDIT PRODUCT ANALYST/CDT): 1111 Licensed Practitioner Receiving Report: RIZWAN Banegas Communication performed by eeg technologist. Signer Name: Loco Kenny MD Signed: 10/29/2019 11:55 AM Workstation Name: [id number]
[2019-10-29] MEDS ORDERED: HYDROCORTISONE SOD SUCC 100 MG/2 ML VIAL IV SCH (14:00)
[2019-10-29 16:31] VITALS: BP 141/74
[2019-10-30] MEDS ORDERED: HYDROCORTISONE SOD SUCC 100 MG/2 ML VIAL IV SCH (10:00)
[2019-10-31] MEDS ORDERED: HYDROCORTISONE SOD SUCC 100 MG/2 ML VIAL IV SCH (10:00)
[2019-11-01] MEDS ORDERED: predniSONE 20 MG TAB PO SCH (10:00)
[2019-11-03] MEDS ORDERED: APIXABAN 5 MG TAB PO SCH (10:00)
== END 2019-10-29 18:56 | disposition home health service (06) | DRG 166 ==
LOC: ED 17:03 → CC1 23:12 → 4A 10-28 14:45
PROVIDERS: ADMIT Internal Medicine Geriatric Medicine; ATTEND Internal Medicine
PROC: 4A033R1 Measurement of Arterial Saturation, Peripheral, Percutaneous Approach (ICD-10-PCS; 2019-10-25)
PROC: 06HY33Z Insertion of Infusion Device into Lower Vein, Percutaneous Approach (ICD-10-PCS; 2019-10-25)
PROC: 3E06317 Introduction of Other Thrombolytic into Central Artery, Percutaneous Approach (ICD-10-PCS; principal; 2019-10-26)
PROC: B54CZZA Ultrasonography of Left Lower Extremity Veins, Guidance (ICD-10-PCS; 2019-10-26)
PROC: 02HQ33Z Insertion of Infusion Device into Right Pulmonary Artery, Percutaneous Approach (ICD-10-PCS; 2019-10-26)
PROC: 06H03DZ Insertion of Intraluminal Device into Inferior Vena Cava, Percutaneous Approach (ICD-10-PCS; 2019-10-27)
PROC: B31T1ZZ Fluoroscopy of Left Pulmonary Artery using Low Osmolar Contrast (ICD-10-PCS; 2019-10-27)
PROC: B31S1ZZ Fluoroscopy of Right Pulmonary Artery using Low Osmolar Contrast (ICD-10-PCS; 2019-10-27)
PROC: 02PY33Z Removal of Infusion Device from Great Vessel, Percutaneous Approach (ICD-10-PCS; 2019-10-27)
DX: I26.99 Other pulmonary embolism without acute cor pulmonale (principal); N17.0 Acute kidney failure with tubular necrosis; J96.01 Acute respiratory failure with hypoxia; E87.6 Hypokalemia; J44.9 Chronic obstructive pulmonary disease, unspecified; Z20.828 Contact with and (suspected) exposure to other viral communicable diseases; E87.5 Hyperkalemia; E66.01 Morbid (severe) obesity due to excess calories; I95.9 Hypotension, unspecified; I10 Essential (primary) hypertension; M19.90 Unspecified osteoarthritis, unspecified site; Z71.6 Tobacco abuse counseling; Z68.32 Body mass index [BMI] 32.0-32.9, adult; F17.210 Nicotine dependence, cigarettes, uncomplicated; I51.9 Heart disease, unspecified; R79.89 Other specified abnormal findings of blood chemistry
CPT/HCPCS: 36415; 37191; 37211; 37214; 71045; 71275; 76937; 80048; 80053; 80061; 81001; 82140; 82728; 82803; 82947; 83615; 83735; 83880; 84132; 84145; 84484; 85007; 85014; 85018; 85025; 85049; 85379; 85384; 85520; 85610; 85730; 86140; 87040; 93005; 93970; 94760; 96365; 96367; 96375; 99406; G0378; C1757; C1769; C1880; C1894; J0692; J1170; J1265; J1644; J1720; J2250; J2997; J3010; J3480; J7030; J7040; J7050; Q9967; U0003-CS

== ENCOUNTER 2020-01-08 09:14 | Day surgery (SDC) | payer MEDICARE ==
[2020-01-08] MEDS ORDERED: SODIUM CHLORIDE 0.9% 500 ML 500 ML IV SCH (10:00)
[2020-01-08 10:24] LABS: Basophils # (Auto) 0.1 K/mm3 (0.0-0.1); Basophils % (Auto) 0.6 % (0.0-1.8); Eosinophils % (Auto) 0.3 % (0.0-4.3); Hematocrit 38.9 % (30.3-42.9); Hemoglobin 12.6 gm/dl (10.1-14.3); Lymphocytes # (Auto) 0.7 K/mm3 (1.2-5.4); Lymphocytes % (Auto) 7.5 % (13.4-35.0); Mean Corpuscular HGB Conc 33 % (30-34); Mean Corpuscular Volume 90 fl (79-97); Monocytes # (Auto) 0.2 K/mm3 (0.0-0.8); Monocytes % (Auto) 2.1 % (0.0-7.3); Platelet Count 336 K/mm3 (140-440); Red Blood Count 4.33 M/mm3 (3.65-5.03); Red Cell Distribution Width 18.4 % (13.2-15.2)
--- NOTE | 2020-01-08 10:31 | Short Stay Summary ---
Short Stay Documentation Date of service: 01/08/20 Narrative H&P: The patient is a 59-year-old female with a history of DVT and pulmonary embolus who underwent bilateral pulmonary artery thrombolysis and placement of an IVC filter. She is currently on anticoagulation and return to the office for removal of her inferior vena cava filter however I was unable to retrieve the filter in the office secondary to a fibrin sheath on the retrieval hook. She returns to the hospital for an additional attempt at retrieving the filter. She is tolerating her anticoagulation without any complaints of bleeding. She has no complaints of chest pain or shortness of breath. At this time she has no additional complaints. - History Principal diagnosis: Indwelling Inferior Vena Cava Filter Past Medical History: arthritis, COPD, DVT, hypertension, pulmonary embolism, other (Morbid obesity, peripheral neuropathy, prediabetic) Past Surgical History: Other (ORIF right wrist, IVC filter placement, thrombolysis of bilateral pulmonary arteries) Social history: no significant social history - Allergies and Medications Current Medications: Allergies diclofenac [From Voltaren] Allergy (Verified 10/25/19 18:02) Hiv Home Medications Medication Instructions Recorded Confirmed Last Taken Type Amitriptyline [Elavil] 25 mg PO QHS 10/26/19 10/26/19 Unknown History Cyclobenzaprine HCl [Flexeril 5 MG 5 mg PO TID 10/26/19 10/26/19 Unknown History TAB] Furosemide [Lasix TAB] 40 mg PO QDAY 10/26/19 10/26/19 Unknown History Ibuprofen [Motrin 800 MG tab] 800 mg PO Q8HR PRN 10/26/19 10/26/19 Unknown History predniSONE [Deltasone] 20 mg PO QDAY 10/26/19 10/26/19 Unknown History Acetaminophen [Acetaminophen TAB] 650 mg PO Q6H PRN tablet 10/29/19 Unknown Rx Apixaban [Eliquis] 5 mg PO Q12HR #60 tablet 10/29/19 Unknown Rx Apixaban [Eliquis] 10 mg PO Q12HR 5 Days #10 tablet 10/29/19 Unknown Rx Gabapentin 300 mg PO TID #90 cap 10/29/19 Unknown Rx predniSONE [Deltasone] 20 mg PO QDAY tablet 10/29/19 Unknown Rx HYDROcodone/APAP 10-325 [[place] 1 each PO Q8H PRN #14 tablet 11/04/19 Unknown Rx 10-325 mg TAB] Potassium Chloride [K-Dur] 20 meq PO QDAY #5 tablet 11/04/19 Unknown Rx Active Medications Sodium Chloride (Nacl 0.9% 500 Ml) 500 mls @ 50 mls/hr IV DIRECT KATEY - Physical exam General appearance: no acute distress Lungs: Normal air movement Breasts: deferred Heart: Regular rate Gastrointestinal: normal Female Genitourinary: deferred Rectal Exam: deferred Extremities: no ischemia - Brief post op/procedure progress note Date of procedure: 01/08/20 Pre-op diagnosis: Indwelling Inferior Vena Cava Filter Post-op diagnosis: same Procedure: 1. Ultrasound-Guided Access Right Internal Jugular Vein 2. Diagnostic Inferior Venacavogram 3. Removal of Inferior Vena Cava Filter (Using the Hangman Technique) 4. Radiologic Supervision with Interpretation 5. Monitored Moderate Sedation (Total Anesthesia Time: 74 Minutes) Anesthesia: local, other (Monitored moderate sedation) Surgeon: NADIYA ZHU Estimated blood loss: minimal Pathology: list (Indwelling IVC filter) Specimen disposition: discarded Condition: stable - Disposition Condition at discharge: Good Disposition: DC-01 TO HOME OR SELFCARE Short Stay Discharge Plan Activity: other (No strenuous activity for 24-hour) Wound: open to air, keep clean and dry, other (Okay to shower and wash the wound with soap and water but do not soak in water) Follow up with: NADIYA ZHU MD [Staff Physician] - 14 Days Prescriptions: HYDROcodone/APAP 7.5-325 [[place] 7.5/325] 1 each PO Q6HR PRN #20 tablet PRN Reason: Pain
[2020-01-08 10:34] LABS: Blood Urea Nitrogen 16 mg/dL (7-17); Calcium 8.5 mg/dL (8.4-10.2); Hemolysis Index 7
[2020-01-08 10:39] LABS: BUN/Creatinine Ratio 23
[2020-01-08 10:40] LABS: INR 1.01 (0.87-1.13)
[2020-01-08 10:41] LABS: Partial Thromboplastin Time 26.4 Sec. (24.2-36.6)
[2020-01-08] MEDS ORDERED: HEPARIN/NS 5000 UNIT/500ML 1,000 ML IR ONE (12:22)
[2020-01-08] MEDS ORDERED: fentaNYL 100 MCG/2 ML INJ ONE (12:22)
[2020-01-08] MEDS ORDERED: LIDOCAINE 1%/EPINEPHRINE 1:100,000 VIAL (20 ML) INFILTRATI ONE (12:22)
[2020-01-08] MEDS ORDERED: MIDAZOLAM 2 MG/2 ML INJ ONE (12:22)
[2020-01-08] MEDS: HEPARIN 10,000 UNITS/10 ML VIAL ONE ×2 (13:39→13:43)
[2020-01-08] MEDS ORDERED: HYDROcodone/ACETAMINOPHEN 5-325 MG TAB PO PRN (14:42)
--- NOTE | 2020-01-08 14:56 | Operative Report ---
Operative Report Operative Report: Date of Procedure: 01/08/2020 Pre-operative Diagnosis: Indwelling IVC Filter Post-operative Diagnosis: Same Procedure(s): 1. Ultrasound-Guided Access Right Internal Jugular Vein 2. Diagnostic Inferior Venacavogram 3. Removal of Inferior Vena Cava Filter (Using the Hangman Technique) 4. Radiologic Supervision with Interpretation 5. Monitored Moderate Sedation (Total Anesthesia Time: 74 Minutes) Surgeon: Anurag Wise M.D. Twill Cutter: None Anesthesia: Monitored Moderate Sedation Total Anesthesia Time: 74 Minutes EBL: Minimal Counts: Correct Complications: None Condition: Stable Specimen: The retrieved filter was discarded. Indication: The patient is a 59-year-old female with a history of DVT and pulmonary emboli that was managed with bilateral pulmonary artery thrombolysis. After the procedure she had a IVC filter placed and has been managed with oral anticoagulation. She is in need of retrieval of the IVC filter prior to cessation of the anticoagulation. There was an attempt at retrieving the filter in our outpatient center however I was unable to retrieve it in the outpatient setting secondary to a fibrin sheath on the retrieval hook. She is in need of additional attempts in the hospital. She was given the risk, benefits, and alternative procedures and consented to the procedure. Venogram Findings: The diagnostic venogram revealed that the filter was in place and all legs appeared to be intact. There was no evidence of thrombus within the IVC filter. After retrieval of the filter there was no evidence of extravasation of contrast from the IVC. There was no evidence of retained foreign body within the IVC or distally. All legs were accounted for on the filter after retrieving. Description of Procedure: The patient was brought to the [facility] and laid in supine position. After a timeout was performed her right neck was prepped and draped in normal sterile fashion. Ultrasound was used to identify the right internal jugular vein and confirm patency. Once patency was confirmed the overlying skin and soft tissue was anesthetized with lidocaine. An 11 blade was used to make a small stab incision and a curved hemostat was used to dilate the tract. A 21-gauge micropuncture needle was used with ultrasound guidance into the right internal jugular vein and a 0.018 micropuncture wire was advanced into the vein. The needle was removed and a micropuncture sheath was placed by Seldinger technique. The inner cannula and wire were removed and a 0.035 Bentson wire was advanced into the inferior vena cava under fluoroscopy. A 5 Moz[place] sheath was then placed by Seldinger technique. The 5 [place]amb[place] sheath was then removed and a 16 [place] 45 cm Cook sheath was advanced into the inferior vena cava by Seldinger technique. The patient was then systemically heparinized with 7000 units of heparin IV. I then advanced a 12 to 20 mm Ensnare into the inferior vena cava and made attempts to snare the inferior vena cava filter without success. I advanced a Bentson wire alongside the Ensnare and then advanced an Omni Flush catheter over the Bentson wire. I then advanced a 0.035 floppy Glidewire through the Omni Flush catheter and was able to advance the Omni Flush catheter and the Glidewire through the legs of the filter and snared the Glidewire on the contralateral side of the filter. I pulled the Glidewire back through the 16 [place] sheath and then removed the Omni Flush catheter. I advanced a 0.035 crossing catheter over the Glidewire and then exchanged for a stiff Glidewire and while pulling on both ends of the Glidewire attempted to advance the 16 [place] sheath over the filter however the wire was clearly not centered under the filter and pulled one of the legs out of position, leaving it intact on the filter but malaligned. I reinserted the Omni Flush catheter and the floppy Glidewire and was able to position the catheter and wire directly under the filter. This was confirmed by viewing the catheter and wire multiple obliquities. I then snared the wire using the Ensnare and pulled the wire back out of the 16 [place] sheath. I gently pulled cephalad retraction on both ends of the floppy Glidewire while advancing the 16 [place] sheath and was able to advance the sheath over the hook of the IVC filter and restrained the filter back in the sheath. I pulled the filter out of the sheath in all legs were accounted for. I performed a final venogram revealing no evidence of extravasation of contrast or thrombus within the IVC filter. I then removed the 16 [place] sheath and closed my skin incision using 4-0 Monocryl in running fashion and then dressed it with Dermabond. Once the Dermabond dried a pressure dressing was applied to the entry site using a 4 x 4 gauze and Tegaderm. The patient tolerated the procedure well and was transported to the recovery area in stable condition.
[2020-01-08 15:03] VITALS: BP 169/145
== END 2020-01-08 15:30 | disposition home or self-care (01) ==
LOC: CATHLABREC 09:14
PROVIDERS: ATTEND Surgery Vascular Surgery
DX: Z45.89 Encounter for adjustment and management of other implanted devices (principal); G62.9 Polyneuropathy, unspecified; I25.10 Atherosclerotic heart disease of native coronary artery without angina pectoris; I73.9 Peripheral vascular disease, unspecified; I10 Essential (primary) hypertension; J45.909 Unspecified asthma, uncomplicated; G47.30 Sleep apnea, unspecified; F17.210 Nicotine dependence, cigarettes, uncomplicated; M19.90 Unspecified osteoarthritis, unspecified site; Z88.8 Allergy status to other drugs, medicaments and biological substances; Z79.899 Other long term (current) drug therapy; Z72.89 Other problems related to lifestyle; Z98.890 Other specified postprocedural states
CPT/HCPCS: 36415; 37193; 80048; 85025; 85610; 85730; 99156; 99157; C1725; C1769; C1773; C1887; J1644; J2250; J3010; J7040; Q9967